=== PATIENT | female | born 1955 | race Caucasian/White ===

== ENCOUNTER 2016-09-05 08:13 | Inpatient (IN) | payer BC ==
[2016-08-07 13:14] VITALS: BMI 24.0
--- NOTE | 2016-08-07 13:54 | PAT Medication Instructions ---
Service Date Aug 07, 2016. Current Home Medication List Alendronate Sodium (Fosamax), 70 MG PO WK Aspirin (Aspirin 81), 81 MG PO 3XWK Cholecalciferol (Vitamin D), 1 TAB PO QPM Levothyroxine Sodium (Synthroid), 88 MCG PO QAM Losartan Potassium (Losartan Potassium), 1 TAB PO QAM Naproxen (Aleve), 1-2 TAB PO QAM Pravastatin (Pravachol ), 10 MG PO HS Medication Instructions For Your Scheduled Surgery Alendronate Sodium (Fosamax), 70 MG PO WK (continue as usual on Sundays) - Hold the following medications 10 days prior to surgery per surgeon instructions: Naproxen (Aleve), 1-2 TAB PO QAM - Hold the following medications the morning of surgery: Losartan Potassium (Losartan Potassium), 1 TAB PO QAM - Take the following medications the morning of surgery with a sip of water: Levothyroxine Sodium (Synthroid), 88 MCG PO QAM Aspirin (Aspirin 81), 81 MG PO 3XWK Tylenol (if needed) - Take the following medications as scheduled the night before surgery: Pravastatin (Pravachol ), 10 MG PO HS Cholecalciferol (Vitamin D), 1 TAB PO QPM Tylenol (if needed) If you have any questions please call us at [phone] or [phone] ( [place]) or [phone]
--- NOTE | 2016-08-07 14:25 | DIAGNOSTIC IMAGING REPORT ---
CHEST 2 VIEWS ROUTINE CLINICAL HISTORY: Preoperative chest COMPARISON STUDY: 06/22/2014 FINDINGS: The cardiac and mediastinal contours are normal. There is no evidence of focal pulmonary consolidation. There is no evidence of failure. No pleural effusions are visualized.[ IMPRESSION: No active disease in the chest. Electronically signed by: Tae Peters M.D. 08/07/2016 2:24 PM Dictated Date/Time: 08/07/2016 2:23 PM
[2016-08-07 14:43] LABS: BASO % 0.6 %; BASO ABS # 0.03 K/uL (0-0.2); COMPLETE YES; EOS % 0.6 %; HEMATOCRIT 41.2 % (37-47); IG% 0.2 %; LYMPH % 28.9 %; LYMPH ABS # 1.42 K/uL (1.2-3.4); MEAN CELL VOLUME 80.6 fL (80-100); MEAN CORPUSCULAR HEMOGLOBIN 28.6 pg (25-34); MEAN CORPUSCULAR HGB CONC 35.4 g/dl (32-36); MEAN PLATELET VOLUME 10.3 fL (7.4-10.4); MONO % 7.5 %; NEUT % 62.2 %; PLATELET COUNT 154 K/uL (130-400); RED BLOOD COUNT 5.11 M/uL (4.2-5.4); WHITE BLOOD COUNT 4.91 K/uL (4.8-10.8)
[2016-08-07 14:50] LABS: PROTHROMBIN TIME (PATIENT) 10.6 SECONDS (9.0-12.0)
[2016-08-07 15:22] LABS: BUN/CREATININE RATIO 19.2 (10-20); CALCIUM 9.3 mg/dl (8.5-10.1); CREATININE 0.75 mg/dl (0.60-1.20); POTASSIUM 4.3 mmol/L (3.5-5.1)
--- NOTE | 2016-09-02 15:51 | HISTORY & PHYSICAL EXAMINATION ---
DATE OF ADMISSION: 09/05/2016 CHIEF COMPLAINT: Left knee pain. HISTORY OF PRESENT ILLNESS: A 60-year-old female who presents for surgical treatment of her left knee. She has a 10+ year history of left knee pain and discomfort. No injuries in the past, just progressive increasing pain. She has been limping around on this. She has been through extensive conservative treatment provided at [facility] with steroid shots and viscosupplementation. The shots only help her for about a day or two and at maximum a week. The pain has become more debilitating. She would like to have her left knee replaced. PAST MEDICAL HISTORY: 1. Hypertension. 2. Elevated cholesterol. 3. Hypothyroidism. 4. Low back pain/sciatica. PAST SURGICAL HISTORY: Previous surgeries include: 1. . 2. Cholecystectomy. ALLERGIES: None. CURRENT MEDICINES: Include: 1. Levothyroxine 100 mcg a day. 2. Losartan 25 mg a day. 3. Pravastatin 10 mg a day. 4. Alendronate 70 mg a week. 5. Vitamin D 1000 international units a day. 6. Aspirin 81 mg 2-3 times a week. 7. Aleve 1-2 per day. SOCIAL HISTORY: This is a 60-year-old white female. She works at [employer]. She is . Two children. FAMILY HISTORY: Significant for heart disease, diabetes and colon cancer. REVIEW OF SYSTEMS: Negative for diabetes, neurologic problems, vascular problems or bleeding disorders. Denies any chest pain or shortness of breath. No history of DVT or PE. PHYSICAL EXAMINATION: GENERAL: Reveals a healthy pleasant, middle-aged female. She looks in pretty good health. HEENT: Benign. NECK: Supple. No lymphadenopathy. LUNGS: Clear to auscultation. HEART: Has a regular rate and rhythm. ABDOMEN: Soft, nontender, nondistended. EXTREMITIES: Grossly neurovascularly intact except as follows: Examination of the left knee reveals the patient walks with a markedly antalgic gait. She has got valgus alignment to her knee which is exacerbated with weightbearing. Her knee is pretty stiff with range of motion about 15 degrees short of full extension to 90 degrees of flexion. No pain with hip motion. X-RAYS: X-rays of the left knee were reviewed. It shows advanced left knee DJD. She has got complete loss of her lateral joint space. She has subchondral sclerosis. Patella was pretty well centered within the trochlea. She has got osteophytes in all 3 compartments. ASSESSMENT: A 60-year-old white female with advanced left knee degenerative joint disease unresponsive to conservative treatment. She would like to have her left knee replaced. She does have some underlying right hip and right knee DJD but the left knee is what is limiting her most. PLAN: We are going to take her to the operating room and do a left total knee replacement. The risks and benefits of this procedure were explained to the patient including but not limited to DVT, PE, , infection, neurological injury, vascular injury, bleeding problem, pain, limited range of motion, stiffness, failure to relieve symptoms, incomplete relief of symptoms, persistent pain, need for further surgery in the future. The patient understands and desires to proceed. Informed consent was obtained. As far as discharge plans, she is planning to be discharged to home with home health using [facility] home health program. We also discussed with her the increased risk of peroneal nerve palsy with her stiff knee and valgus alignment. We will do the best we can to avoid this but we likely will have to do a lateral release to correct the deformity in her knee. As far as medicines, we did talk to her about taking her Synthroid the morning of surgery and holding the Aleve 10 days preop. We will plan DVT prophylaxis including aspirin twice a day.
[2016-09-05] VITALS (7 sets, daily range): BP systolic 103–156; BP diastolic 65–81; PULSE 63–84; TEMP 36.7–37; O2SAT 95–100; Ht 167.6 cm; Wt 69.1 kg
[~2016-09-05] VITALS: Ht 167.6 cm; Wt 69.1 kg
[~2016-09-05 08:13] MED LIST: ACETAMINOPHEN 500 MG TAB PO SCH; ALEN70TA2 PO; ASPI-435 PO; BUPIVACAINE 0.25% 30 ML VIAL ONE; BUPIVACAINE 0.5 % 5 MG/1 ML PF 10ML VIAL ONE; BUPIVACAINE LIPOSOME 266 MG, BUPIVACAINE/EPINEPHRINE INJ 50 ML, SODIUM CHLORIDE 0.9% PF... INFIL SCH; CEFAZOLIN 2000 MG/60 ML D5W 60 ML IV SCH; CHOL100010 PO; CZR25 PO; FAMOTIDINE 20 MG TAB PO SCH; GABAPENTIN 300 MG CAP PO SCH; LACTATED RINGER'S 1000ML 1,000 ML IV SCH; LACTATED RINGER'S 1000ML 500 ML IV SCH; LACTATED RINGER'S 1000ML IV SCH; LEVO88TA PO; METOCLOPRAMIDE HCL 10 MG TAB PO SCH; NAPR1TAB9 PO; PRAV20TA PO; ROPIVACAINE 0.5% 5 MG/ML 30 ML VIAL ONE; SCOPOLAMINE 1.5 MG TDSY TD SCH; TRANEXAMIC ACID INJ 1,000 MG in SODIUM CHLORIDE 0.9% 100ML 100 ML IV SCH
--- NOTE | 2016-09-05 08:38 | History & Physical Bridge Note ---
H&P Re-Evaluation Bridge Note: I have examined the patient, reviewed the History & Physical and in the interval since the performance of the History & Physical I have noted the following changes of clinical significance: No changes noted
[2016-09-05] MEDS ORDERED: MIDAZOLAM HCL 1 MG/ML 2ML VIAL ONE ×2 (10:47→12:16)
[2016-09-05] MEDS ORDERED: HYDROmorphone INJ 2 MG/ML SYR/VIAL IV PRN (11:45)
[2016-09-05] MEDS ORDERED: ONDANSETRON INJ 2 MG/ML 2 ML VIAL IV PRN (11:45)
[2016-09-05] MEDS ORDERED: PHENYLEPHRINE 100MCG/ML 5ML SYR IV PRN (11:45)
[2016-09-05] MEDS ORDERED: ATROPINE SULFATE 0.1 MG/ML 5ML SYR IV PRN (11:45)
[2016-09-05] MEDS ORDERED: EpHEDrine SULFATE INJ 50 MG/ML AMP IV PRN (11:45)
[2016-09-05] MEDS ORDERED: LIDOCAINE HCL 2% 2 ML VIAL (20MG/ML) ONE ×2 (12:02→12:24)
[2016-09-05] MEDS ORDERED: PROPOFOL IV EMULSION 10 MG/ML 20 ML VIAL IV ONE (12:02)
[2016-09-05] MEDS ORDERED: BUPIVACAINE/EPINEPHRINE 0.25% 1:200,000 30 ML VIAL ONE (12:04)
[2016-09-05] MEDS ORDERED: SODIUM CHLORIDE 0.9% PF 50 ML VIAL ONE (12:04)
[2016-09-05] MEDS ORDERED: BUPIVACAINE LIPOSOME 1/3% 266 MG/20 ML VIAL INFIL ONE (12:05)
[2016-09-05] MEDS ORDERED: BACITRACIN 50000 UNIT VIAL ONE (12:05)
--- NOTE | 2016-09-05 13:53 | [facility] Post Operative Brief Note ---
Immediate Operative Summary Operative Date Sep 05, 2016. Pre-Operative Diagnosis Left knee degenerative joint disease Post-Operative Diagnosis Left knee degenerative joint disease Procedure(s) Performed Left total knee arthroplasty Surgeon Dr. Hemant Noble Sales And Service Consultant Surgeon(s) Scott Choudhary PA-C Estimated Blood Loss 50cc Findings Left Knee DJD Fluids (cc crystalloids) 1400 cc Specimens A. Left knee bone and tissue Drains None Anesthesia Spinal Complication(s) None Disposition Recovery Room / PACU
[2016-09-05] MEDS ORDERED: ALUMINUM/MAGNESIUM/SIMETH (MAALOX MAX) 30 ML UDC PO PRN (14:00)
[2016-09-05] MEDS ORDERED: BISACODYL 10 MG SUPP PR PRN (14:00)
[2016-09-05] MEDS ORDERED: DiphenhydrAMINE HCL 50 MG/ML VIAL IV PRN (14:00)
[2016-09-05] MEDS ORDERED: METOCLOPRAMIDE HCL INJ 5 MG/ML 2 ML VIAL IV PRN (14:00)
[2016-09-05] MEDS ORDERED: SILVER SULFADIAZINE 1% CR 50 GM JAR EXT PRN (14:00)
[2016-09-05] MEDS ORDERED: MAGNESIUM HYDROXIDE SUSP 30 ML UDC PO PRN (14:00)
[2016-09-05] MEDS ORDERED: OXYCODONE HCL IR 5 MG TAB (IMMEDIATE RELEASE) PO PRN (14:00)
[2016-09-05] MEDS ORDERED: ZOLPIDEM TARTRATE 5 MG TAB PO PRN (14:00)
--- NOTE | 2016-09-05 14:05 | Anesthesiology Progress Note ---
Anesthesia Post Op Note Date & Time Sep 05, 2016 at 14:04 Vital Signs Pain Intensity: 0 Vital Signs Past 12 Hours Date Time Temp Pulse Resp B/P Pulse Ox O2 Delivery O2 Flow Rate FiO2 09/05/16 08:32 36.9 84 20 156/76 99 Room Air Notes Mental Status: alert / awake / arousable, participated in evaluation Pt Amnestic to Procedure: Yes Nausea / Vomiting: adequately controlled Pain: adequately controlled Airway Patency, RR, SpO2: stable & adequate BP & HR: stable & adequate Hydration State: stable & adequate Anesthetic Complications: no major complications apparent
--- NOTE | 2016-09-05 14:23 | DIAGNOSTIC IMAGING REPORT ---
LEFT KNEE 1 OR 2 VIEWS ROUTINE CLINICAL HISTORY: S/P TKA LEFT KNEE joint replacement COMPARISON: None. DISCUSSION: Anatomic alignment status post total left knee replacement. Good contact between prosthetic and underlying bone. Surgical drains are in position. Expected postoperative soft tissue change IMPRESSION: Anatomic alignment status post total left knee replacement. Electronically signed by: Francesco Manning M.D. 09/05/2016 2:22 PM Dictated Date/Time: 09/05/2016 2:21 PM
[2016-09-05] MEDS: CHECK SCOPOLAMINE PATCH PLACEMENT SCH ×2 (16:34→23:38)
[2016-09-05] MEDS: D5W AND 1/2NSS + 20MEQ KCL 1,000 ML IV SCH (16:35)
[2016-09-05] MEDS: ONDANSETRON INJ 2 MG/ML 2 ML VIAL IV PRN (17:20)
[2016-09-05] MEDS: FERROUS GLUCONATE 324 MG TAB PO SCH (17:45)
[2016-09-05] MEDS: KETOROLAC TROMETHAMINE 30 MG/ML VIAL IV. SCH ×2 (18:41→23:33)
--- NOTE | 2016-09-05 19:35 | PROGRESS NOTE ---
DATE: 09/05/2016 SUBJECTIVE: A 60-year-old white female postop from a left knee replacement. She just got to her room when I visited with her this afternoon. No real complaints. Nerve function is just returning. Denies any chest pain or shortness of breath. Not feeling dizzy or lightheaded. OBJECTIVE: VITAL SIGNS: Temperature is 36.8. Vital signs stable. GENERAL: Reveals a healthy, pleasant middle-aged female. She is sitting up in bed, looks pretty comfortable. LUNGS: Clear to auscultation. HEART: Regular rate and rhythm. ABDOMEN: Soft, nontender, nondistended. EXTREMITIES: Grossly neurovascularly intact except as follows: Examination of the left lower extremity reveals the leg to be well aligned. Dressing is clean, dry and intact. She can dorsiflex and plantarflex her foot appropriately. Peroneal nerve is clearly working. Brisk refill. Good distal pulse. X-RAYS: X-rays of the left knee from recovery room were reviewed. This is bit of a rotated film. It shows a cemented posterior stabilized total knee arthroplasty. Components looked to be in good position. No signs of problems. ASSESSMENT: A 60-year-old white female postop from a left knee replacement, doing pretty well. We did a pretty extensive lateral release. She is neurologically intact. PLAN: 1. DVT prophylaxis including thigh high TEDs, SCDs, and aspirin twice a day. 2. PT/OT. Weightbearing as tolerated. Left total knee protocol. 3. Pain control. Doing well with current pain regimen. 4. IV antibiotics x24 hours. 5. Disposition: She is planning to be discharged to home with some home health once adequately recovered.
--- NOTE | 2016-09-05 19:49 | OPERATIVE REPORT ---
DATE OF OPERATION: 09/05/2016 SURGEON: Dr. Hemant Noble. DRAPERY OPERATOR: BRODIE Spivey. PREOPERATIVE DIAGNOSIS: Left knee degenerative joint disease. POSTOPERATIVE DIAGNOSIS: Same. PROCEDURE PERFORMED: Left cemented posterior stabilized total knee arthroplasty. COMPLICATIONS: None. ESTIMATED BLOOD LOSS: 50 mL. FLUID REPLACEMENT: 1400 mL crystalloid fluid replacement. TOURNIQUET TIME: 66 minutes at 300 mmHg. ANESTHESIA: Spinal with adductor canal block. DRAINS: None. SPECIMENS: Left knee sent for pathology. OPERATIVE INDICATIONS: The patient is a 60-year-old very active female who has had a 10-year history of left knee pain and discomfort, unresponsive to conservative treatment. She has got more and more debilitating over time. She has developed very stiff knee with about 15-degree flexion contracture and a valgus alignment. She had advanced lateral compartment DJD. She failed conservative treatment and elected to proceed with surgical treatment. OPERATIVE FINDINGS: Operative findings revealed advanced left knee DJD. She had grade 4 [id number] disease extensively of lateral compartment as well as the patellofemoral compartment. She had some spotty grade 4 changes in the central aspect of the medial femoral condyle as well. She had a fixed valgus deformity to her knee with a flexion contracture. Very stiff knee with only about 100 degrees of flexion. OPERATIVE IMPLANTS: Operative implants consisted of: 1. Biomet Vanguard size 65 left posterior stabilized femoral component. 2. Biomet size 67 tibial tray. 3. A 12 mm posterior stabilized polyethylene insert. 4. A 31 x 8 all poly patella. OPERATIVE PROCEDURE: The patient was taken to the operating room, identified and placed on the operating table in supine position. All contact areas were appropriately padded. IV antibiotics were provided by the anesthesia team. A spinal anesthetic and adductor canal block had been provided in the holding area. Fox catheter was placed in sterile fashion. A left thigh tourniquet was then placed and left lower extremity was then prepped and draped in the usual sterile fashion. The left leg was elevated and exsanguinated with Esmarch and tourniquet was placed at 300 mmHg. An anterior approach to the left knee was then performed through a longitudinal incision centered over the patella. Sharp dissection was carried out through the subcutaneous tissues, down to the level of the extensor mechanism. A medial parapatellar arthrotomy incision was made. Some subperiosteal dissection was carried out medially. The fat pad was resected from beneath the patellar tendon. The lateral patellofemoral ligament was released. The patella was everted and the knee was flexed. The osteophytes were taken off the distal femur. The ACL and PCL were then released from the distal femur and the tibia was subluxated anteriorly. The external tibial alignment jig was then placed in the anterior face of the tibia and adjusted 12 mm medially. Proximal tibial cut was made to remove about 2-3 mm of bone from the medial side. The tibia was then sized to a size 67. Attention was then drawn to the femur. The distal femur was entered with a sharp drill bit. Intramedullary canal was suctioned. A left 5-degree valgus cutting guide was placed. Distal femoral cutting block was pinned in place. Distal femoral cut was made to take an additional 5 mm of bone off the distal femur due to her flexion contracture. The knee was brought out into full extension. I then did a pretty extensive release of the lateral structures including the IT band and the posterolateral capsule in order to equalize the extension gap. Once this was equalized, I then sized the femur. The femur was sized to a size 65. The AP cutting block was pinned parallel to the epicondylar axis, which was 70 degrees of external rotation. The anterior cut, anterior chamfer, posterior cut, posterior chamfer cuts were made. Box cutting guide was placed and adjusted slightly lateral and the box cut was made. The knee was flexed. The remnants of the medial and lateral menisci were excised. I did have to release the popliteus in order to equalize the flexion gap. Great care was taken throughout the procedure to protect the peroneal nerve at all times. A trial femoral component was placed. Tibial tray was pinned in maximum external rotation and drill and stem punch were used to create defect in proximal tibia for the tibial tray. The knee was then trialed and even with a 10 mm insert, it was still tight. Therefore, I elected to cut more tibia. All components were removed. The external tibial alignment jig was placed. I took an additional 4-5 mm off the proximal tibia. We re-punched the tibia with a 67 tray. We then trialed the knee and the 12 mm insert fit most appropriately. We got full extension, slight hyperextension. The knee was stable. The patella tracked well. Attention was then drawn toward the patella component. The patella was cleaned of all soft tissues. Patella thickness measured about 22 mm, was cut down to 14. It was sized to a size 31 patella. Lug holes were drilled for the 31 patella. The lateral osteophyte was removed. Patella button was placed. Knee was taken through range of motion and the patella tracked nicely with no thumbs test. Attention was then drawn toward placement of permanent components. All trial components were removed. Bone plug was placed in the distal femur to limit blood loss. A double batch of Palacos G cement was mixed. A left size 65 posterior stabilized femoral component, size 67 tibial tray, 12 mm posterior stabilized polyethylene insert, and a 31 x 8 all poly patella were then cemented in place. Knee was brought out into full extension until cement hardened. A final cement check was then performed. The pericapsular tissues were then injected with a total of 100 mL of a combination of 20 mL of Exparel, 30 mL of normal saline, 50 mL of 0.25% Marcaine with epinephrine. The patient did receive 1 gram of tranexamic acid. The tourniquet was then let down for a final tourniquet time of 66 minutes. Hemostasis was assured with use of electrocautery. The extensor mechanism was then closed with a combination of #1 PDS suture and #1 Vicryl suture in a [id number] fashion. Extensor mechanism was checked and found to be intact. Subcutaneous tissues were then closed with 2-0 Dexon suture in a buried interrupted fashion. Skin was closed with skin damaris. Leg was then cleaned and dried and a sterile dressing composed of Xeroform, 4 x 4, sterile cast padding and David bandage were applied. The patient then transferred to the recovery room in stable condition. The patient tolerated the procedure well with no complication. All needle and sponge counts were correct at the end of the operation. I attest to the content of the Intraoperative Record and any orders documented therein. Any exceptio ns are noted below.
[2016-09-05] MEDS ORDERED: TRANEXAMIC ACID INJ 1,000 MG in SODIUM CHLORIDE 0.9% 100ML 100 ML IV SCH (20:00)
[2016-09-05] MEDS: CEFAZOLIN IV 1,000 MG in DEXTROSE 5% 50ML 50 ML IV SCH (20:40)
[2016-09-05] MEDS: TAPENTADOL ER 50 MG TABCR PO SCH (21:00)
[2016-09-05] MEDS: CHOLECALCIFEROL 400 INTER.UNIT TAB PO SCH (21:00)
[2016-09-05] MEDS: PRAVASTATIN SOD 20 MG TAB PO SCH (21:00)
[2016-09-05] MEDS: ASPIRIN 325 MG ECTAB PO SCH (21:00)
[2016-09-05] MEDS: DOCUSATE SODIUM 100 MG CAP PO SCH (21:00)
[2016-09-05] MEDS: ACETAMINOPHEN 500 MG TAB PO SCH (21:45)
[2016-09-06] MEDS: D5W AND 1/2NSS + 20MEQ KCL 1,000 ML IV SCH ×2 (03:12→12:00)
[2016-09-06] MEDS: MoRPHine SULFATE 2 MG/ML CARP IV PRN ×2 (03:17→10:37)
[2016-09-06 03:18] VITALS: BP 99/62; PULSE 71; TEMP 36.8; O2SAT 96
[2016-09-06] MEDS: CEFAZOLIN IV 1,000 MG in DEXTROSE 5% 50ML 50 ML IV SCH (03:20)
[2016-09-06] MEDS: ONDANSETRON INJ 2 MG/ML 2 ML VIAL IV PRN (06:13)
[2016-09-06] MEDS: KETOROLAC TROMETHAMINE 30 MG/ML VIAL IV. SCH ×4 (06:14→23:33)
[2016-09-06] MEDS: LEVOTHYROXINE 88 MCG TAB PO SCH (06:14)
[2016-09-06] MEDS: ACETAMINOPHEN 500 MG TAB PO SCH ×3 (06:15→21:25)
[2016-09-06 06:58] LABS: HEMATOCRIT 32.5 % (37-47); MEAN CELL VOLUME 82.9 fL (80-100); MEAN CORPUSCULAR HEMOGLOBIN 28.3 pg (25-34); MEAN CORPUSCULAR HGB CONC 34.2 g/dl (32-36); MEAN PLATELET VOLUME 9.2 fL (7.4-10.4); PLATELET COUNT 124 K/uL (130-400); RED BLOOD COUNT 3.92 M/uL (4.2-5.4); WHITE BLOOD COUNT 5.95 K/uL (4.8-10.8)
[2016-09-06] MEDS: CHECK SCOPOLAMINE PATCH PLACEMENT SCH ×3 (07:21→23:34)
[2016-09-06 07:31] LABS: BUN/CREATININE RATIO 9.9 (10-20); CALCIUM 7.8 mg/dl (8.5-10.1); CREATININE 0.74 mg/dl (0.60-1.20); POTASSIUM 3.7 mmol/L (3.5-5.1)
[2016-09-06 08:14] VITALS: BP 122/70; PULSE 64; TEMP 36.8; O2SAT 98
[2016-09-06 08:45] VITALS: BP 109/69; PULSE 67
[2016-09-06] MEDS: MULTIVITAMIN TAB PO SCH (08:46)
[2016-09-06] MEDS: FERROUS GLUCONATE 324 MG TAB PO SCH ×3 (08:46→17:43)
[2016-09-06] MEDS: DOCUSATE SODIUM 100 MG CAP PO SCH ×2 (08:46→20:27)
[2016-09-06] MEDS: TAPENTADOL ER 50 MG TABCR PO SCH ×2 (08:46→20:27)
[2016-09-06] MEDS: LOSARTAN POTASSIUM 25 MG TAB PO SCH (08:46)
[2016-09-06] MEDS: ASPIRIN 325 MG ECTAB PO SCH ×2 (08:47→20:27)
[2016-09-06] MEDS: PANTOprazole SOD 40 MG TAB PO SCH (08:47)
[2016-09-06 08:54] VITALS: O2SAT 98
[2016-09-06 11:34] VITALS: BP 100/60; PULSE 70; TEMP 36.5; O2SAT 96
--- NOTE | 2016-09-06 12:00 | PROGRESS NOTE ---
DATE: 09/06/2016 SUBJECTIVE: A 60-year-old female, postop day #1 from a left knee replacement. She is doing well. Pain is controlled. Had a reasonable night. No chest pain or shortness of breath. Not feeling dizzy or lightheaded. OBJECTIVE: VITAL SIGNS: Temperature is 36.5. Vital signs stable. PHYSICAL EXAMINATION: GENERAL: Reveals a healthy, pleasant middle-aged female. She is sitting up in bed and was reading a book when I visited her this morning. LUNGS: Clear to auscultation. HEART: Regular rate and rhythm. ABDOMEN: Soft, nontender, nondistended. EXTREMITIES: Grossly neurovascularly intact except as follows: Examination of the left lower extremity reveals the leg to be well aligned. Dressing is clean, dry and intact. She can dorsiflex and plantarflex her foot appropriately. She is neurologically intact. LABORATORY DATA: Hemoglobin 11.1, hematocrit 32.5. Electrolytes are stable. ASSESSMENT: A 60-year-old white female, postop day #1 from left knee replacement, doing pretty well. Her pain is controlled. She is neurologically intact. PLAN: 1. DVT prophylaxis including thigh TEDs, SCDs, and aspirin twice a day. 2. PT/OT. Weightbearing as tolerated. Left total knee protocol. 3. Pain control, doing well with current pain regimen. 4. Disposition: She is hoping to be discharged to home with some home health once adequately recovered.
--- NOTE | 2016-09-06 13:00 | Anesthesiology Progress Note ---
Anesthesia Post Op Note Date & Time Sep 06, 2016 at 12:59 Vital Signs Vital Signs Past 12 Hours Date Time Temp Pulse Resp B/P Pulse Ox O2 Delivery O2 Flow Rate FiO2 09/06/16 11:34 36.5 70 16 100/60 96 Room Air 09/06/16 08:54 98 Room Air 09/06/16 08:45 67 109/69 09/06/16 08:14 36.8 64 16 122/70 98 Room Air 09/06/16 06:30 Room Air 09/06/16 03:18 36.8 71 16 99/62 96 Room Air Notes Mental Status: alert / awake / arousable, participated in evaluation Pt Amnestic to Procedure: Yes Nausea / Vomiting: adequately controlled Pain: adequately controlled Airway Patency, RR, SpO2: stable & adequate BP & HR: stable & adequate Hydration State: stable & adequate Neuraxial Anesthesia: was administered, sensory block resolved Anesthetic Complications: no major complications apparent
[2016-09-06 15:01] VITALS: BP 123/64; PULSE 78; TEMP 36.7; O2SAT 98
[2016-09-06] MEDS ORDERED: NURSING VERBAL MED ORDER ONE (16:00)
[2016-09-06] MEDS: TRAMADOL HCL 50 MG TAB PO PRN ×2 (17:09→23:32)
[2016-09-06] MEDS: PRAVASTATIN SOD 20 MG TAB PO SCH (21:24)
[2016-09-06] MEDS: CHOLECALCIFEROL 400 INTER.UNIT TAB PO SCH (21:24)
[2016-09-06] MEDS ORDERED: ULT50X PO (21:43)
[2016-09-06] MEDS ORDERED: ASPEC325 PO (21:43)
[2016-09-06] MEDS ORDERED: MORP15TA19 PO (21:43)
[2016-09-06] MEDS ORDERED: ACET-1138 PO (21:43)
--- NOTE | 2016-09-06 21:47 | Discharge Instructions ---
Discharge Instructions Date of Service Sep 06, 2016. Admission Reason for Admission: Left Knee Degenerative Joint Disease Discharge Discharge Diagnosis / Problem: Left Knee Replacement Discharge Goals Goal(s): Decrease discomfort, Improve function, Increase independence, Improve disease control, Therapeutic intervention Activity Recommendations Activity Limitations: per Instructions/Follow-up section Weightbearing Status: Left weightbearing . Instructions / Follow-Up Instructions / Follow-Up ACTIVITY RECOMMENDATIONS: Physical Therapy: * You will go to physical therapy three times each week for four to six weeks after your surgery in order to regain your knee range of motion and to retrain your knee to work properly. * It is just as important to make sure you are getting your knee perfectly straight as it is to regain your knee bend. * Taking a pain pill an hour before therapy can help you have a more productive and comfortable therapy session. Home Exercise: * You were shown a series of exercises (heel props, heel slides, etc.) in the hospital. Do these exercises three to four times each day including the exercises you were shown in physical therapy. Walking: * Get up and walk several times each day. For the first four weeks, try not to stand or walk for more than one hour at a time. If you do stand or walk for more than one hour, you will not hurt anything, but your knee and leg will likely swell. * As you feel comfortable, you may change from the walker or crutches to a cane and then to independent walking. MEDICATIONS: New Medicine: * You will likely be taking one or more of these medications: 1. MS Contin - A long-acting pain medication. Take 1 tablet twice a day for the first ten days to decrease your baseline level of pain. 2. Tramadol - A quick and shorter-acting pain medication. Take one to two tablets every four to six hours to lessen your pain. 3. Aspirin - Thins your blood to lessen the chance of forming a blood clot. * The most common side effects of pain medicine and iron are nausea and constipation. If nausea or constipation is too much of a problem or if you have any questions about your new medicines or doses, call [facility] at . We will try to help you manage these issues. VERY IMPORTANT TO READ AND REVIEW" Pain: * The immediate post-operative period after knee replacement surgery is often quite painful. * You are given a prescription for pain medicine. You should take it, as directed, when you need it, especially before physical therapy and before going to bed. Pain that interferes with sleep is very common and can last several months. * You will likely need pain medicine for the first four to six weeks. It will not stop all of the pain. The pain will lessen and as you feel better, you may change to milder pain medicine such as Tylenol. * The most common side effects of pain medicine are nausea and constipation, so don't take more than you need. SPECIAL CARE INSTRUCTIONS: TEDs/Elastic Stockings: * The white elastic stockings help limit swelling and prevent blood clots from forming in your legs. The more you wear them, the more they work. * Wear them for six weeks after knee replacement surgery and four weeks after partial knee replacement. Prevention of Infection: * Take antibiotics one hour before any dental cleaning, dental work, urological procedure, gastrointestinal procedure or any invasive surgery in order to prevent your new joint from getting infected. * You may get the antibiotics from the doctor performing the procedure or you may call our office at before and we will call in a prescription to the pharmacy of your choice. Things to Watch For: * Drainage from the incision site that occurs more than one week after your surgery. * Severely increased knee/leg pain or swelling. * Increased redness at the incision site. * Fever above 102 degrees Fahrenheit. * Unusual chest pain or shortness of breath. * Unusual pain or burning with urination. Call [facility] at with any of the above problems or if you have any questions about your medicines or recovery. FOLLOW UP VISIT: Make an appointment to see your doctor for approximately two weeks after surgery for a progress check and staple removal by calling the office at . Current Hospital Diet Patient's current hospital diet: Regular Diet Discharge Diet Recommended Diet: Regular Diet Procedures Procedures Performed: Left total knee arthroplasty Pending Studies Studies pending at discharge: no Medical Emergencies . Who to Call and When: Medical Emergencies: If at any time you feel your situation is an emergency, please call [phone] immediately. . Non-Emergent Contact Non-Emergency issues call your: Surgeon . "Provider Documentation" section prepared by Hemant Noble. VTE Core Measure Inpt VTE Proph given/why not?: Other Anticoagulation, T.E.D. Stockings, SCD's
[2016-09-07] MEDS: LEVOTHYROXINE 88 MCG TAB PO SCH (05:37)
[2016-09-07] MEDS: ACETAMINOPHEN 500 MG TAB PO SCH (05:37)
[2016-09-07] MEDS: KETOROLAC TROMETHAMINE 30 MG/ML VIAL IV. SCH ×2 (05:40→12:00)
[2016-09-07 06:38] VITALS: BP 109/68; PULSE 71; TEMP 36.8; O2SAT 97
[2016-09-07] MEDS ORDERED: PROM25TA9 PO (07:02)
--- NOTE | 2016-09-07 07:27 | ORTHOPEDIC PROGRESS NOTE ---
DATE: 09/07/2016 SUBJECTIVE: Aissatou is a 60-year-old female. She is on postop day #2 from left total knee replacement. Pain is controlled. No other complaints at this time. PHYSICAL EXAM: GENERAL: She is alert, oriented in no distress. LEFT LOWER EXTREMITY: Dressing is clean, dry and intact. She is able to dorsiflex, plantarflex appropriately, neurovascularly intact. VITAL SIGNS: Her vital signs have been stable. ASSESSMENT: Postoperative day 2 from left total knee replacement. PLAN: She is doing well at this point, will continue PT, OT. Weightbearing as tolerated. Continue TEDS, SCDs and aspirin b.i.d. for DVT prophylaxis. Her pain is controlled and she is taking tramadol for pain. Will plan to discharge her home today with some home health. She is requesting some Phenergan for nausea so we will write her for Phenergan as well.
[2016-09-07] MEDS: CHECK SCOPOLAMINE PATCH PLACEMENT SCH (08:09)
[2016-09-07] MEDS: FERROUS GLUCONATE 324 MG TAB PO SCH ×2 (08:11→12:30)
[2016-09-07] MEDS: LOSARTAN POTASSIUM 25 MG TAB PO SCH (08:14)
[2016-09-07] MEDS: MULTIVITAMIN TAB PO SCH (08:16)
[2016-09-07] MEDS: TAPENTADOL ER 50 MG TABCR PO SCH (08:16)
[2016-09-07] MEDS: PANTOprazole SOD 40 MG TAB PO SCH (08:16)
[2016-09-07] MEDS: ASPIRIN 325 MG ECTAB PO SCH (08:26)
[2016-09-07] MEDS: DOCUSATE SODIUM 100 MG CAP PO SCH (08:26)
[2016-09-07 08:46] VITALS: BP 95/68
[2016-09-07] MEDS: TRAMADOL HCL 50 MG TAB PO PRN (10:33)
[2016-09-07 11:02] VITALS: BP 95/68; PULSE 71; TEMP 36.8; O2SAT 97
--- NOTE | 2016-09-14 01:55 | DISCHARGE SUMMARY ---
ADMITTING PHYSICIAN AND SURGEON: Dr. Noble. ADMITTING DIAGNOSIS: Left knee degenerative joint disease. SURGERY PERFORMED: Left total knee arthroplasty. SECONDARY DIAGNOSES: Hypertension, elevated cholesterol, hypothyroidism, low back pain, sciatica. CONSULTS: None obtained. HISTORY AND PHYSICAL EXAMINATION: Well documented in the patient's chart. HOSPITAL COURSE: The patient was admitted on 09/05/2016, underwent total knee arthroplasty, tolerated the procedure well. There were no complications. She was transferred to the PACU postoperatively and later to the orthopedic floor for further care. She was given Ancef for antibiotic prophylaxis; [place] stockings, SCDs and aspirin for DVT prophylaxis. Hemoglobin, hematocrit and vital signs were monitored during her hospital stay and remained stable. She developed some postoperative anemia with hemoglobin of 11.1 and did not require any blood transfusions. There were no complications. By postoperative day 2, she was tolerating a general diet, pain was controlled with oral pain medicine, and she was participating in physical therapy and had no signs or symptoms of deep vein thrombosis. On postop day 2, she was discharged home in good condition, set up with home health services, and given printed discharge instructions including extra strength Tylenol, aspirin 325 mg b.i.d., MS Contin, tramadol. She was also given Phenergan for nausea. She can continue her home medications with the exception of her home dose of aspirin which was changed. Continue physical therapy, weightbearing as tolerated, [place] stockings. Follow up in 10-12 days or sooner if there are any problems or concerns.
== END 2016-09-07 13:26 | disposition home health service (06) | DRG 470 ==
LOC: ENRESERVTM → ENRESERVDT → C.ACU 08:13 → C.3E 08:59
PROVIDERS: ADMIT Orthopaedic Surgery Sports Medicine; ATTEND Orthopaedic Surgery Sports Medicine
PROC: 0SRD0J9 Replacement of Left Knee Joint with Synthetic Substitute, Cemented, Open Approach (ICD-10-PCS; principal; 2016-09-05 10:40)
DX: M17.0 Bilateral primary osteoarthritis of knee (principal); E03.9 Hypothyroidism, unspecified; E78.00 Pure hypercholesterolemia, unspecified; I10 Essential (primary) hypertension; M54.5 Low back pain; M54.10 Radiculopathy, site unspecified; M16.11 Unilateral primary osteoarthritis, right hip; M21.062 Valgus deformity, not elsewhere classified, left knee; Z79.82 Long term (current) use of aspirin; Z79.1 Long term (current) use of non-steroidal anti-inflammatories (NSAID); Z79.899 Other long term (current) drug therapy; Z79.83 Long term (current) use of bisphosphonates

== ENCOUNTER → 2016-10-04 | Outpatient (CLI) | payer BC ==
[~2016-10-04] MED LIST changes: +ACET-1138 PO; -ACETAMINOPHEN 500 MG TAB PO SCH; +ASPEC325 PO; -ASPI-435 PO; -BUPIVACAINE 0.25% 30 ML VIAL ONE; -BUPIVACAINE 0.5 % 5 MG/1 ML PF 10ML VIAL ONE; -BUPIVACAINE LIPOSOME 266 MG, BUPIVACAINE/EPINEPHRINE INJ 50 ML, SODIUM CHLORIDE 0.9% PF... INFIL SCH; -CEFAZOLIN 2000 MG/60 ML D5W 60 ML IV SCH; -FAMOTIDINE 20 MG TAB PO SCH; -GABAPENTIN 300 MG CAP PO SCH; -LACTATED RINGER'S 1000ML 1,000 ML IV SCH; -LACTATED RINGER'S 1000ML 500 ML IV SCH; -LACTATED RINGER'S 1000ML IV SCH; -METOCLOPRAMIDE HCL 10 MG TAB PO SCH; +PROM25TA9 PO; -ROPIVACAINE 0.5% 5 MG/ML 30 ML VIAL ONE; -SCOPOLAMINE 1.5 MG TDSY TD SCH; -TRANEXAMIC ACID INJ 1,000 MG in SODIUM CHLORIDE 0.9% 100ML 100 ML IV SCH; +ULT50X PO
--- NOTE | 2016-10-04 17:09 | MAMMOGRAPHY REPORT ---
BILATERAL DIGITAL SCREENING MAMMOGRAM TOMOSYNTHESIS WITH CAD: 10/04/2016 CLINICAL HISTORY: Routine screening. Patient has no complaints. TECHNIQUE: Breast tomosynthesis in addition to standard 2D mammography was performed. Current study was also evaluated with a Computer Aided Detection (CAD) system. COMPARISON: Comparison is made to exams dated: 09/28/2015 mammogram, 09/23/2014 mammogram, 09/16/2013 m ammogram, 09/03/2012 mammogram, 08/29/2011 mammogram, and 08/11/2009 mammogram - [facility] enter. BREAST COMPOSITION: There are scattered areas of fibroglandular density in both breasts. FINDINGS: There are stable punctate benign-appearing microcalcifications in the anterior aspect of the breasts. No suspicious mass, architectural distortion or cluster of suspicious microcalcificatio ns is seen. IMPRESSION: ACR BI-RADS CATEGORY 2: BENIGN There is no mammographic evidence of malignancy. A 1 year screening mammogram is recommended. The p atient will receive written notification of the results. Approximately 10% of breast cancers are not detected with mammography. A negative mammographic repor t should not delay biopsy if a clinically suggestive mass is present. Loida Heck M.D. ay/:10/04/2016 16:46:25 Logistics Supervisor: Cookie John, [facility] letter sent: Normal 1/2 BI-RADS Code: ACR BI-RADS Category 2: Benign
== END | disposition home or self-care (01) ==
LOC: C.MAMM 14:30
PROVIDERS: ATTEND Obstetrics & Gynecology
DX: Z12.31 Encounter for screening mammogram for malignant neoplasm of breast (principal)

== ENCOUNTER 2017-08-01 19:26 | Observation (INO) | payer OTHER ==
[~2017-08-01] VITALS: Ht 167.6 cm; Wt 71.1 kg
[~2017-08-01 19:26] MED LIST changes: -ACET-1256 PO; -ASPI81TA28 PO; -LEVO100T7 PO; -OPTIRAY 320 IV PRN; -OXYC-57 PO; -PRAV10TA39 PO
[2017-08-01 20:32] LABS: BASO % 0.2 %; BASO ABS # 0.01 K/uL (0-0.2); EOS % 0.5 %; EOS ABS # 0.03 K/uL (0-0.5); HEMATOCRIT 41.6 % (37-47); IG# 0.01 K/uL (0.00-0.02); LYMPH % 20.7 %; LYMPH ABS # 1.27 K/uL (1.2-3.4); MEAN CELL VOLUME 81.4 fL (80-100); MEAN CORPUSCULAR HEMOGLOBIN 29.4 pg (25-34); MEAN CORPUSCULAR HGB CONC 36.1 g/dl (32-36); MEAN PLATELET VOLUME 9.7 fL (7.4-10.4); MONO % 6.5 %; NEUT % 71.9 %; NEUT ABS # 4.42 K/uL (1.4-6.5); PLATELET COUNT 168 K/uL (130-400); RED CELL DISTRIBUTION WIDTH CV 13.6 % (11.5-14.5); RED CELL DISTRIBUTION WIDTH SD 40.1 fL (36.4-46.3); WHITE BLOOD COUNT 6.14 K/uL (4.8-10.8)
[2017-08-01 20:46] LABS: ALBUMIN 4.4 gm/dl (3.4-5.0); CALCIUM 9.4 mg/dl (8.5-10.1); CREATININE 0.84 mg/dl (0.60-1.20); POTASSIUM 3.4 mmol/L (3.5-5.1)
[2017-08-01 20:49] LABS: TOTAL PROTEIN 8.2 gm/dl (6.4-8.2)
[2017-08-01] MEDS ORDERED: ACET-1256 PO (21:30)
[2017-08-01] MEDS ORDERED: ASPI81TA28 PO (21:30)
[2017-08-01] MEDS ORDERED: LEVO100T7 PO (21:30)
[2017-08-01] MEDS ORDERED: PRAV10TA39 PO (21:31)
[2017-08-01 21:56] VITALS: O2SAT 98
[2017-08-01] MEDS ORDERED: BUPIVACAINE 0.5 % 5 MG/1 ML MPF 30ML VIAL ONE (21:56)
[2017-08-01] MEDS ORDERED: MIDAZOLAM HCL 1 MG/ML 2ML VIAL ONE (22:00)
[2017-08-01] MEDS ORDERED: FENTANYL CITRATE INJ 50 MCG/1 ML 2 ML VIAL ONE (22:01)
[2017-08-01] MEDS ORDERED: PHENYLEPHRINE HCL INJ 10 MG/ML VIAL ONE (22:02)
[2017-08-01] MEDS ORDERED: PROPOFOL IV EMULSION 10 MG/ML 20 ML VIAL IV ONE (22:02)
[2017-08-01] MEDS ORDERED: EpHEDrine SULFATE INJ 50 MG/ML AMP ONE (22:02)
[2017-08-01] MEDS ORDERED: LIDOCAINE HCL 2% 2 ML VIAL (20MG/ML) ONE ×2 (22:02)
--- NOTE | 2017-08-01 22:03 | History and Physical ---
History & Physical Date Aug 01, 2017. Chief Complaint RLQ abdominal pain History of Present Illness The patient is a 61 year old female with complaints of periumbilical pain eventually localizing to the RLQ which started around Midnight this past night. States the pain was sharp and stabbing but calmed down a bit. She continued to have RLQ tenderness so she went to see her physician Dr. Pan who sent her to [facility] for an U/S. The U/S was indeterminant so she was sent to the hospital to have a CT with showed findings significant for acute appendicitis. She was then sent to the ED. Denies fever/chills/recent illness. Denies nausea/ vomiting. States she did have some diarrhea due to the CT prep but denies any irregularities with BM. She has been urinating without trouble. She last ate at 0830 this AM. PSHx significant for laparoscopic cholecystectomy, and Left TKA. She does take Aspirin 81mg PO QD. Her last dose was last night around 2100. Denies use of any other blood thinning or anticoagulant medications. She does have an allergy to chlorhexidine. WBC WNL. Last colonoscopy in 2014 which she reports was normal without any polyps. Past Medical/Surgical History Medical Problems: (1) Left Knee DJD Additional History Hepatic Disease: No Endocrine Disorder: No Kidney Disease: No Hypertension: No Heart Disease: No Bleeding Tendencies: No Infectious Diseases: No Allergies Coded Allergies: Chlorhexidine (Verified Allergy, Mild, RASH, 08/01/17) Home Medications Scheduled Alendronate Sodium (Fosamax), 70 MG PO WK Aspirin (Aspirin Ec), 81 MG PO HS Cholecalciferol (Vitamin D), 1,000 INTER.UNIT PO QPM Levothyroxine Sodium (Levothyroxine Sodium), 100 MCG PO QAM Losartan Potassium (Losartan Potassium), 25 MG PO QAM Pravastatin Sodium (Pravastatin Sodium), 10 MG PO HS Scheduled PRN Acetaminophen (Tylenol), 1,000 MG PO Q8 PRN for Pain or Fever Naproxen (Aleve), 220-440 MG PO UD PRN for Pain Physical Examination Skin: warm/dry Eyes: normal inspection Head: normocephalic, atraumatic Neck: trachea midline Respiratory/Chest: lungs clear, normal breath sounds, no respiratory distress Cardiovascular: regular rate, rhythm, no murmur Abdomen / GI: normal bowel sounds, + pertinent finding (RLQ TTP) Neurologic/Psych: alert, oriented x 3 Diagnosis Acute Appendicitis ASA Classification: ASA Class II Plan of Treatment Acute Appendicitis Plan for laparoscopic appendectomy, possible open with Dr. Ward in OR tonight. Risks, benefits, alternatives to the procedure were discussed - all questions answered. NPO, 2g IV Mefoxin, SCDs. OR Notified. Please contact with questions or concerns.
--- NOTE | 2017-08-01 22:03 | EMERGENCY ROOM VISIT NOTE ---
History First contact with patient: 20:04 Chief Complaint: ABNORMAL DIAGNOSTIC TESTING Stated Complaint: ACUTE APPENDICITIS History of Present Illness The patient is a 61 year old female who presents to the Emergency Room with complaints of abdominal pain. The patient reports that last night around midnight, she developed periumbilical pain. She states that the pain then moved to her right lower abdomen. The pain was initially intense, but then improved slightly. She states that throughout the day, her pain has been better but she has had pain with pushing on the area or walking. She was seen by her primary care provider and had an ultrasound ordered which was inconclusive. She then had a CT scan which showed findings consistent with acute appendicitis. Patient denies any fevers, urinary symptoms, changes in bowel movements, nausea or vomiting. She has had previous cholecystectomy, C- section and left knee replacement. She has history of hypertension and hypothyroidism. Review of Systems A complete 10 point review of systems was reviewed with the patient with pertinent positives and negatives as per history of present illness. All else were negative. Past Medical/Surgical History Medical Problems: (1) Hyperlipidemia (2) Hypertension (3) Hypothyroidism (4) Left Knee DJD Surgical Problems: (1) History of section (2) History of cholecystectomy (3) Status post left knee replacement Social History Smoking Status: Never Smoker Marital Status: Housing Status: lives with family Occupation Status: employed Current/Historical Medications Scheduled Alendronate Sodium (Fosamax), 70 MG PO WK Aspirin (Aspirin Ec), 81 MG PO HS Cholecalciferol (Vitamin D), 1,000 INTER.UNIT PO QPM Levothyroxine Sodium (Levothyroxine Sodium), 100 MCG PO QAM Losartan Potassium (Losartan Potassium), 25 MG PO QAM Pravastatin Sodium (Pravastatin Sodium), 10 MG PO HS Scheduled PRN Acetaminophen (Tylenol), 1,000 MG PO Q8 PRN for Pain or Fever Naproxen (Aleve), 220-440 MG PO UD PRN for Pain Physical Exam Vital Signs Date Time Temp Pulse Resp B/P (MAP) Pulse Ox O2 Delivery O2 Flow Rate FiO2 08/01/17 21:56 84 16 158/75 98 08/01/17 21:04 81 16 133/72 97 Room Air 08/01/17 19:34 36.6 98 20 139/73 98 Room Air Physical Exam VITALS: Vitals are noted on the nurse's note and reviewed by myself. Vital signs stable. GENERAL: This is a 61-year-old female, in no acute distress, nondiaphoretic, well-developed well-nourished. MOUTH: Mucous membranes moist. HEART: Regular rate and rhythm without murmurs gallops or rubs. LUNGS: Clear to auscultation bilaterally without wheezes, rales or rhonchi. ABDOMEN: Positive bowel sounds x 4. Soft, nondistended. There is tenderness to palpation in the right lower quadrant over McBurney's point. No guarding or rebound tenderness. Negative Rovsing sign. NEURO: Patient was alert and oriented to person place and time. Medical Decision & Procedures Laboratory Results 08/01/17 20:15 Red Blood Count 5.11, Mean Corpuscular Volume 81.4, Mean Corpuscular Hemoglobin 29.4, Mean Corpuscular Hemoglobin Concent 36.1, Mean Platelet Volume 9.7, Neutrophils (%) (Auto) 71.9, Lymphocytes (%) (Auto) 20.7, Monocytes (%) (Auto) 6.5, Eosinophils (%) (Auto) 0.5, Basophils (%) (Auto) 0.2, Neutrophils # (Auto) 4.42, Lymphocytes # (Auto) 1.27, Monocytes # (Auto) 0.40, Eosinophils # (Auto) 0.03, Basophils # (Auto) 0.01 08/01/17 20:15 Test 08/01/17 20:15 White Blood Count 6.14 K/uL (4.8-10.8) Red Blood Count 5.11 M/uL (4.2-5.4) Hemoglobin 15.0 g/dL (12.0-16.0) Hematocrit 41.6 % (37-47) Mean Corpuscular Volume 81.4 fL (80-100) Mean Corpuscular Hemoglobin 29.4 pg (25-34) Mean Corpuscular Hemoglobin Concent 36.1 g/dl (32-36) Platelet Count 168 K/uL (130-400) Mean Platelet Volume 9.7 fL (7.4-10.4) Neutrophils (%) (Auto) 71.9 % Lymphocytes (%) (Auto) 20.7 % Monocytes (%) (Auto) 6.5 % Eosinophils (%) (Auto) 0.5 % Basophils (%) (Auto) 0.2 % Neutrophils # (Auto) 4.42 K/uL (1.4-6.5) Lymphocytes # (Auto) 1.27 K/uL (1.2-3.4) Monocytes # (Auto) 0.40 K/uL (0.11-0.59) Eosinophils # (Auto) 0.03 K/uL (0-0.5) Basophils # (Auto) 0.01 K/uL (0-0.2) RDW Standard Deviation 40.1 fL (36.4-46.3) RDW Coefficient of Variation 13.6 % (11.5-14.5) Immature Granulocyte % (Auto) 0.2 % Immature Granulocyte # (Auto) 0.01 K/uL (0.00-0.02) Urine Color YELLOW Urine Appearance CLEAR (CLEAR) Urine pH 5.0 (4.5-7.5) Urine Specific [place] <= 1.005 (1.000-1.030) Urine Protein NEG (NEG) Urine Glucose (UA) NEG (NEG) Urine Ketones TRACE (NEG) Urine Occult Blood 2+ (NEG) Urine Nitrite NEG (NEG) Urine Bilirubin NEG (NEG) Urine Urobilinogen NEG (NEG) Urine Leukocyte Esterase NEG (NEG) Urine RBC 5-10 /hpf (0-4) Urine WBC 0 /hpf (0-5) Urine Epithelial Cells 0-5 /lpf (0-5) Urine Bacteria NEG (NEG) Anion Gap 6.0 mmol/L (3-11) Est Creatinine Clear Calc Drug Dose 71.2 ml/min Estimated GFR () 87.6 Estimated GFR (Non- 75.5 BUN/Creatinine Ratio 12.0 (10-20) Calcium Level 9.4 mg/dl (8.5-10.1) Total Bilirubin 2.2 mg/dl (0.2-1) Aspartate Amino Transf (AST/SGOT) 17 U/L (15-37) Alanine Aminotransferase (ALT/SGPT) 20 U/L (12-78) Alkaline Phosphatase 73 U/L (45-117) Total Protein 8.2 gm/dl (6.4-8.2) Albumin 4.4 gm/dl (3.4-5.0) Globulin 3.8 gm/dl (2.5-4.0) Albumin/Globulin Ratio 1.2 (0.9-2) ECG Per My Interpretation Rate (beats per minute): 82 Rhythm: normal sinus Findings: PVC, T-wave inversion (Inferior) Comparison ECG Date: PVCs present, T wave inversions more evident- inferior and anterolateral Medical Decision Differential diagnosis includes appendicitis, colitis, gastroenteritis, bowel obstruction, among others. The patient is a 61-year-old female who presents today complaining of right lower quadrant abdominal pain. Patient had an outpatient CT performed which showed a thick-walled appendix with mild periappendiceal fat stranding, likely representing acute appendicitis. She is tender over the right lower quadrant. Labs revealed no leukocytosis. General surgery was consulted and will take the patient to the OR for operative management of her acute appendicitis. She is otherwise asymptomatic and did not require any analgesics or antiemetics in the emergency department. Medication Reconcilliation Current Medication List: was personally reviewed by me Blood Pressure Screening Patient's blood pressure: Elevated blood pressure Blood pressure disposition: Elevated BP felt to be situational Impression Primary Impression: Acute appendicitis Departure Information Referrals Ray Pan M.D. (PCP) Patient Instructions My [facility] Problem Qualifiers Primary Impression: Acute appendicitis Acute appendicitis type: with localized peritonitis Qualified Codes: K35.3 - Acute appendicitis with localized peritonitis
[2017-08-01] MEDS ORDERED: CEFOXITIN IV 2,000 MG in DEXTROSE 5% 50ML 50 ML IV STA (22:07)
[2017-08-01] MEDS ORDERED: SCOPOLAMINE 1.5 MG TDSY TD ONE (22:20)
--- NOTE | 2017-08-01 22:22 | Discharge Instructions ---
Discharge Instructions Date of Service Aug 01, 2017. Admission Reason for Admission: Acute Appendicitis Discharge Discharge Diagnosis / Problem: Acute Appendicitis Discharge Goals Goal(s): Decrease discomfort, Improve function Activity Recommendations Activity Limitations: as noted below Lifting Limitations: no more than 10 pounds, until after follow-up appointment Exercise/Sports Limitations: until after follow-up appointment May Resume Sexual Activity: after follow-up appointment Shower/Bathe: tomorrow Driving or Machine Use: resume 3 days after discharge (Please do not drive while using narcotic pain medication) . Instructions / Follow-Up Instructions / Follow-Up You have surgical glue covering your incisions. Please allow this to fall off on its own. You have been prescribed Percocet to take as needed for pain relief. You may alternate this with Ibuprofen for better relief as well. Please follow-up with Dr. Ward in 1-2 weeks. Please contact our office at to schedule an appointment. Please contact our office with any further questions or concerns. [facility] [address] [place] [address] Current Hospital Diet Patient's current hospital diet: Discharge Diet Recommended Diet: Regular Diet Procedures Procedures Performed: Laparoscopic Appendectomy Pending Studies Studies pending at discharge: yes List of pending studies: pathology Medical Emergencies . Who to Call and When: Medical Emergencies: If at any time you feel your situation is an emergency, please call 911 immediately. . Non-Emergent Contact Non-Emergency issues call your: Primary Care Provider, Surgeon Call Non-Emergent contact if: you have a fever, temperature is above 101.5, your pain is not controlled, your pain is worsening, wound has increased drainage, wound has increased redness . "Provider Documentation" section prepared by Ghassan Decker. . VTE Core Measure Inpt VTE Proph given/why not?: SCD's [place] Drug Monitoring Program Search Results: patient reviewed within database, no issues identified
[2017-08-01] MEDS ORDERED: EpHEDrine SULFATE INJ 50 MG/ML AMP IV PRN (22:30)
[2017-08-01] MEDS ORDERED: ATROPINE SULFATE 0.1 MG/ML 5ML SYR IV PRN (22:30)
[2017-08-01] MEDS ORDERED: HYDROmorphone INJ 1 MG/ML SYR IV PRN (22:30)
[2017-08-01] MEDS ORDERED: PHENYLEPHRINE 100MCG/ML 5ML SYR IV PRN (22:30)
[2017-08-01] MEDS ORDERED: PROMETHAZINE HCL INJ 12.5 MG in SODIUM CHLORIDE 0.9% 50ML 50 ML IV PRN (22:30)
[2017-08-01] MEDS ORDERED: ONDANSETRON INJ 2 MG/ML 2 ML VIAL IV PRN (22:30)
[2017-08-01] MEDS ORDERED: FENTANYL CITRATE INJ 50 MCG/1 ML 2 ML VIAL IV PRN (22:30)
[2017-08-01] MEDS ORDERED: DEXAMETHASONE SOD INJ 4 MG/ML VIAL ONE ×2 (23:09)
[2017-08-01] MEDS ORDERED: ONDANSETRON INJ 2 MG/ML 2 ML VIAL ONE (23:09)
[2017-08-01] MEDS ORDERED: GLYCOPYRROLATE INJ 0.2 MG/ML VIAL ONE (23:32)
[2017-08-01] MEDS ORDERED: NEOSTIGMINE METHYLSULFATE 5 MG/5 ML SYR ONE (23:33)
--- NOTE | 2017-08-01 23:50 | [facility] Operative Report ---
Operative Report Operative Date Aug 01, 2017. Pre-Operative Diagnosis Acute Appendicitis Post-Operative Diagnosis Acute, suppurative, nonperforated appendicitis Procedure(s) Performed Laparoscopic appendectomy Surgeon Dr Ward [employer] Surgeon(s) Ghassan Decker Estimated Blood Loss 4cc Findings Acute, suppurative, nonperforated appendicitis Specimens As Per Surgeon A. Appendix Drains None Anesthesia GETA Complication(s) None Disposition Recovery Room / PACU Indications 61-year-old female with abdominal pain that migrated to her right lower quadrant , CT scan and exam consistent with appendicitis. Plan for laparoscopic appendectomy. The risks of the procedure were discussed, all questions were answered, and the patient agreed to proceed with surgery as planned. Description of Procedure The patient was properly identified, consented, and taken to the operating room where she was placed in the supine position. General endotracheal anesthesia was induced. SCDs and a safety belt were placed. Preoperative antibiotics were administered. A Fox catheter was not placed. The patient's abdomen was prepped and draped in the standard sterile fashion. Surgical timeout was performed and all parties were in agreement that this was the correct patient and procedure to be performed and we continued as planned. A curvilinear infraumbilical incision was made with electrocautery and deepened down to the fascia with blunt dissection. The base of the umbilicus was grasped with a Susan and elevated towards the ceiling. An incision was made in the midline fascia with a knife and entry into the peritoneum was confirmed. Stay suture of 0 Vicryl was placed and a Lyle trocar was inserted. The abdomen was insufflated with carbon dioxide which the patient tolerated without incident. The laparoscope was inserted and no damage from initial trocar placement was noted, no gross abnormalities were noted within the 4 quadrants the abdomen. 5 mm ports were then placed in the left lower quadrant with care not to damage the epigastric vessels, and in the suprapubic midline with care not to damage the bladder. The patient was placed in Trendelenburg position and rotated towards the left. The small bowel was swept away from the right lower quadrant. The cecum was grasped with an atraumatic grasper exposing the appendix. The appendix was mildly inflamed and there was no evidence of perforation. There was no fluid in the pelvis. A window was created between the base of the appendix and the mesoappendix. A bowling loaded endoscopic stapler was then used to divide the appendix at its base. A bowling load was then used to divide the mesoappendix. Hemostasis was good. The appendix was placed in an Endo Catch bag and removed through the umbilical port site. The right lower quadrant and pelvis was irrigated and hemostasis was found to be good. 5 mm trochars were removed under direct visualization and the abdomen was allowed to collapse. The umbilical port site fascia was closed with 0 Vicryl suture. The wound was irrigated, and the skin of all ports was closed with 4-0 Monocryl subcuticular sutures. Dermabond was placed over the wounds. The patient was extubated in the operating room and taken to the PACU where she recovered without apparent incident. All sponge, instrument and needle counts were correct at the conclusion of the procedure. The patient tolerated the procedure well. The physician's elementary assistant teacher was present and scrubbed for the entirety of the case. He was essential in positioning the patient, prepping and draping, entry into the abdomen, retraction and exposure, removal of the appendix, closure of the incisions, and placement of the dressings. I attest to the content of the Intraoperative Record and any orders documented therein. Any exceptions are noted below.
--- NOTE | 2017-08-01 23:51 | [facility] Post Operative Brief Note ---
Immediate Operative Summary Operative Date Aug 01, 2017. Pre-Operative Diagnosis Acute Appendicitis Post-Operative Diagnosis Acute Appendicitis Procedure(s) Performed Laparoscopic Appendectomy Surgeon Dr Ward Ager Operator Surgeon(s) Ghsasan Decker Estimated Blood Loss 4cc Findings Consistent with Post-Op Diagnosis Acute, suppurative, nonperforated appendicitis Specimens As Per Surgeon A. Appendix Drains None Anesthesia Type General Complication(s) none Disposition Accompanied Pt To Recover: no Disposition: Recovery Room / PACU
[2017-08-02] VITALS (9 sets, daily range): BP systolic 108–143; BP diastolic 63–80; PULSE 72–115; TEMP 36.3–36.7; O2SAT 95–97; Ht 167.6 cm; Wt 71.1 kg
[2017-08-02] MEDS ORDERED: ESMOLOL HCL 10 MG/ML 10 ML VIAL ONE (00:01)
[2017-08-02] MEDS ORDERED: HYDROmorphone INJ 1 MG/ML SYR IV PRN ×2 (00:15)
[2017-08-02] MEDS ORDERED: OXYCODONE/ACETAMINOPHEN 5-325 TAB PO PRN ×2 (00:15)
[2017-08-02] MEDS ORDERED: ACETAMINOPHEN IV 100 ML IV PRN (00:15)
[2017-08-02] MEDS ORDERED: ONDANSETRON INJ 2 MG/ML 2 ML VIAL IV PRN (00:15)
--- NOTE | 2017-08-02 00:45 | Anesthesiology Progress Note ---
Anesthesia Post Op Note Date & Time Aug 02, 2017 at 00:44 Vital Signs Pain Intensity: 0 Vital Signs Past 12 Hours Date Time Temp Pulse Resp B/P (MAP) Pulse Ox O2 Delivery O2 Flow Rate FiO2 08/02/17 00:34 78 16 124/69 98 08/02/17 00:26 36.2 79 16 123/68 96 Room Air 08/02/17 00:16 79 16 128/70 99 Oxymask 2 08/02/17 00:06 36.2 72 16 131/74 99 Oxymask 4 08/01/17 21:56 84 16 158/75 98 08/01/17 21:04 81 16 133/72 97 Room Air 08/01/17 19:34 36.6 98 20 139/73 98 Room Air Notes Mental Status: alert / awake / arousable, participated in evaluation Pt Amnestic to Procedure: Yes Nausea / Vomiting: adequately controlled Pain: adequately controlled Airway Patency, RR, SpO2: stable & adequate BP & HR: stable & adequate Hydration State: stable & adequate Anesthetic Complications: no major complications apparent
[2017-08-02] MEDS ORDERED: IV FLUIDS COMPLETED PRN (01:15)
[2017-08-02] MEDS: LACTATED RINGER'S 1000ML 1,000 ML IV SCH ×2 (01:17→11:05)
--- NOTE | 2017-08-02 06:52 | Surgery Progress Note ---
Surgery Progress Note Date of Service Aug 02, 2017. Subjective Post OP Day: 1 + feeling well, + ambulating, + pain controlled, + nausea, + vomiting (1 episode on arrival to floor, resolved with zofran.), + diet (on clears, she has not had much yet.), No complaints, No bowel movement Objective Vital Signs: Date Time Temp Pulse Resp B/P (MAP) Pulse Ox O2 Delivery O2 Flow Rate FiO2 08/02/17 03:44 36.3 78 16 110/69 (83) 97 Room Air 08/02/17 02:45 36.4 82 16 112/69 (83) 95 Room Air 08/02/17 01:45 36.4 85 16 124/73 (90) 95 Room Air 08/02/17 01:15 115 18 139/73 (95) 95 Room Air 08/02/17 01:00 36.4 78 16 143/80 (101) 97 Room Air 08/02/17 00:45 36.4 115 18 139/73 Room Air 08/02/17 00:45 Room Air 08/02/17 00:45 Room Air 08/02/17 00:34 78 16 124/69 98 08/02/17 00:26 36.2 79 16 123/68 96 Room Air 08/02/17 00:16 79 16 128/70 99 Oxymask 2 08/02/17 00:06 36.2 72 16 131/74 99 Oxymask 4 08/01/17 21:56 84 16 158/75 98 08/01/17 21:04 81 16 133/72 97 Room Air 08/01/17 19:34 36.6 98 20 139/73 98 Room Air General Appearance: WD/WN, no apparent distress Head: normocephalic, atraumatic Respiratory/Chest: no respiratory distress, no accessory muscle use Abdomen: non distended, soft, no organomegaly, no pulsatile mass, + tenderness (incisional) Incision(s): clean, dry, intact, no erythema, no drainage Laboratory Results: Results Past 24 Hours Test 08/01/17 20:15 Range/Units White Blood Count 6.14 4.8-10.8 K/uL Red Blood Count 5.11 4.2-5.4 M/uL Hemoglobin 15.0 12.0-16.0 g/dL Hematocrit 41.6 37-47 % Mean Corpuscular Volume 81.4 80-100 fL Mean Corpuscular Hemoglobin 29.4 25-34 pg Mean Corpuscular Hemoglobin Concent 36.1 32-36 g/dl Platelet Count 168 130-400 K/uL Mean Platelet Volume 9.7 7.4-10.4 fL Neutrophils (%) (Auto) 71.9 % Lymphocytes (%) (Auto) 20.7 % Monocytes (%) (Auto) 6.5 % Eosinophils (%) (Auto) 0.5 % Basophils (%) (Auto) 0.2 % Neutrophils # (Auto) 4.42 1.4-6.5 K/uL Lymphocytes # (Auto) 1.27 1.2-3.4 K/uL Monocytes # (Auto) 0.40 0.11-0.59 K/uL Eosinophils # (Auto) 0.03 0-0.5 K/uL Basophils # (Auto) 0.01 0-0.2 K/uL RDW Standard Deviation 40.1 36.4-46.3 fL RDW Coefficient of Variation 13.6 11.5-14.5 % Immature Granulocyte % (Auto) 0.2 % Immature Granulocyte # (Auto) 0.01 0.00-0.02 K/uL Urine Color YELLOW Urine Appearance CLEAR CLEAR Urine pH 5.0 4.5-7.5 Urine Specific [place] <= 1.005 1.000-1.030 Urine Protein NEG NEG Urine Glucose (UA) NEG NEG Urine Ketones TRACE NEG Urine Occult Blood 2+ NEG Urine Nitrite NEG NEG Urine Bilirubin NEG NEG Urine Urobilinogen NEG NEG Urine Leukocyte Esterase NEG NEG Urine RBC 5-10 0-4 /hpf Urine WBC 0 0-5 /hpf Urine Epithelial Cells 0-5 0-5 /lpf Urine Bacteria NEG NEG Sodium Level 140 136-145 mmol/L Potassium Level 3.4 3.5-5.1 mmol/L Chloride Level 107 98-107 mmol/L Carbon Dioxide Level 27 21-32 mmol/L Anion Gap 6.0 3-11 mmol/L Blood Urea Nitrogen 10 7-18 mg/dl Creatinine 0.84 0.60-1.20 mg/dl Est Creatinine Clear Calc Drug Dose 71.2 ml/min Estimated GFR () 87.6 Estimated GFR (Non- 75.5 BUN/Creatinine Ratio 12.0 10-20 Random Glucose 91 70-99 mg/dl Calcium Level 9.4 8.5-10.1 mg/dl Total Bilirubin 2.2 0.2-1 mg/dl Aspartate Amino Transf (AST/SGOT) 17 15-37 U/L Alanine Aminotransferase (ALT/SGPT) 20 12-78 U/L Alkaline Phosphatase 73 45-117 U/L Total Protein 8.2 6.4-8.2 gm/dl Albumin 4.4 3.4-5.0 gm/dl Globulin 3.8 2.5-4.0 gm/dl Albumin/Globulin Ratio 1.2 0.9-2 Assessment & Plan POD #1 s/p laparoscopic appendectomy pain controlled, 1 episode of vomiting on arrival to floor, No N/V since. On Clears. She has not urinated yet. Clears for Breakfast, ADAT. D/C today if pain controlled, urinating and tolerating foods. Please contact with questions or concerns.
[2017-08-02] MEDS ORDERED: OXYC-57 PO (06:53)
--- NOTE | 2017-08-02 19:03 | Discharge Summary ---
Discharge Summary Date of Service Aug 02, 2017. Admission Date/Reason Aug 02, 2017 at 00:09 Acute Appendicitis. Discharge Date/Disposition Aug 02, 2017 Home Diagnosis Principal Diagnosis: Acute Appendicitis Procedure(s) Performed laparoscopic appendectomy Medication Reconciliation Percocet 5mg/325mg PO 1-2 Tabs Q4H PRN for pain x 2 days. Disp: 20 Tabs Admission Physical Exam As per Admitting History & Physical. Hospital Course 08/01/17: Patient presented to the ED tonkeith with periumbilical pain eventually localizing to the RLQ x 1 day. She went to her PCP this morning who ordered an U /S which was indeterminant so she was sent to the hospital for a CT scan. CT abd /pelvis showed findings consistent with acute appendicitis and she was sent to the ED. Denies nausea/vomiting. WBC WNL. At this time it was decided to take her to the OR for laparoscopic appendectomy with Dr. Ed toribio. Pre-op antibiotics given. The procedure was performed successfully without complications and the appendix was sent to pathology. The patient was then admitted to med/surg on observation for the night. She did have 1 episode of vomiting on arrival to the floor due to the anesthesia. 08/02/17: This morning her pain is controlled, nausea resolved. No new episodes of vomiting to report. She had not eaten yet but was ready to try some clears. She was discharged later today once her pain was controlled, she was tolerating some foods and urinating without trouble. She was sent home on a 2 day course of Percocet to take as needed for pain relief. She was given instructions to follow-up with Dr. Ward in the office in 1-2 weeks. Discharge Instructions Please refer to the electronic Patient Visit Report (Discharge Instructions) for additional information.
== END 2017-08-02 15:09 | disposition home or self-care (01) ==
LOC: C.EDB 19:27 → C.MSN 08-02 00:09
PROVIDERS: ADMIT Surgery; ATTEND Surgery
DX: K35.80 Unspecified acute appendicitis (principal); I10 Essential (primary) hypertension; E03.9 Hypothyroidism, unspecified; M19.90 Unspecified osteoarthritis, unspecified site; Z90.49 Acquired absence of other specified parts of digestive tract; Z96.652 Presence of left artificial knee joint; Z79.82 Long term (current) use of aspirin

== ENCOUNTER → 2017-08-01 | Outpatient (CLI) | payer OTHER ==
[~2017-08-01] MED LIST changes: +ACET-1256 PO; +ASPI81TA28 PO; +LEVO100T7 PO; +OPTIRAY 320 IV PRN; +OXYC-57 PO; +PRAV10TA39 PO; -PROM25TA9 PO
--- NOTE | 2017-08-01 14:59 | DIAGNOSTIC IMAGING REPORT ---
APPENDICEAL ULTRASOUND CLINICAL HISTORY: Right lower quadrant abdominal pain COMPARISON STUDY: No previous studies for comparison. FINDINGS: Ultrasonographic evaluation the right lower quadrant was performed. The appendix was not visualized. There are no abnormal fluid collections. IMPRESSION: Nonvisualization of the appendix. This examination is therefore nondiagnostic in regards to acute appendicitis Electronically signed by: Tae Peters M.D. 08/01/2017 2:58 PM Dictated Date/Time: 08/01/2017 2:57 PM
--- NOTE | 2017-08-01 18:53 | DIAGNOSTIC IMAGING REPORT ---
ABDOMEN AND PELVIS CT WITH IV AND ORAL CONTRAST CT DOSE: 311.00 mGy.cm HISTORY: Right lower quadrant abdominal pain. TECHNIQUE: Multiaxial CT images of the abdomen and pelvis were performed following the use of intravenous and oral contrast. A dose lowering technique was utilized adhering to the principles of ALARA. COMPARISON STUDY: None. FINDINGS: The lung bases are clear. No pneumoperitoneum. No pneumatosis. Moderate osteoarthritis within the right hip. Tiny fat-containing bilateral inguinal hernias. Cholecystectomy. A few subcentimeter hypodense lesions within the liver too small to characterize but statistically benign. The spleen is top normal in size. No hydronephrosis. A 4 mm stone within the lower pole of the right kidney. A 9 mm hypodense lesion within the upper pole of the left kidney is too small to characterize. Normal pancreas. No retroperitoneal lymphadenopathy. The bladder, uterus, and ovaries are unremarkable. No pelvic free fluid. No evidence for bowel obstruction. Thick-walled appendix demonstrating mild periappendiceal fat stranding. The appendix measures up to 8 mm in diameter. There is small amount of contrast within the appendix. IMPRESSION: 1. Thick-walled appendix demonstrating mild periappendiceal fat stranding. The appendix measures up to 8 mm in diameter. Therefore, these findings likely represent acute appendicitis. 2. Right-sided nephrolithiasis. No hydronephrosis. 3. Cholecystectomy. 4. No evidence for bowel obstruction. Electronically signed by: Darnell Marquez M.D. 08/01/2017 7:06 PM Dictated Date/Time: 08/01/2017 6:43 PM
== END | disposition home or self-care (01) ==
LOC: C.ULTRBC 14:24
PROVIDERS: ATTEND Family Medicine
DX: R10.31 Right lower quadrant pain (principal); N20.0 Calculus of kidney; Z90.49 Acquired absence of other specified parts of digestive tract

== ENCOUNTER 2017-09-28 04:56 | Inpatient (IN) | payer BC, OTHER ==
[2017-09-04 14:48] VITALS: BMI 26.0
--- NOTE | 2017-09-04 15:15 | PAT Medication Instructions ---
Service Date Sep 04, 2017. Current Home Medication List Alendronate Sodium (Fosamax), 70 MG PO WK Aspirin (Aspirin Ec), 81 MG PO HS Cholecalciferol (Vitamin D), 1,000 INTER.UNIT PO QPM Levothyroxine Sodium (Levothyroxine Sodium), 100 MCG PO QAM Losartan Potassium (Losartan Potassium), 25 MG PO QAM Naproxen (Aleve), 220-440 MG PO UD PRN for Pain Pravastatin Sodium (Pravastatin Sodium), 10 MG PO HS Medication Instructions For Your Scheduled Surgery -Continue as directed (but do not take AM day of surgery): Alendronate Sodium (Fosamax), 70 MG PO WK - Hold the following medications 2 weeks prior to surgery per surgeon's instructions: Naproxen (Aleve), 220-440 MG PO UD PRN for Pain - Hold the following medications the morning of surgery: Losartan Potassium (Losartan Potassium), 25 MG PO QAM - Take the following medications the morning of surgery with a sip of water: Levothyroxine Sodium (Levothyroxine Sodium), 100 MCG PO QAM - Take the following medications as scheduled the night before surgery: Aspirin (Aspirin Ec), 81 MG PO HS Cholecalciferol (Vitamin D), 1,000 INTER.UNIT PO QPM Pravastatin Sodium (Pravastatin Sodium), 10 MG PO HS If you have any questions please call us at [phone] or [phone] or [phone]
--- NOTE | 2017-09-04 15:52 | DIAGNOSTIC IMAGING REPORT ---
CHEST 2 VIEWS ROUTINE CLINICAL HISTORY: Preoperative chest COMPARISON STUDY: The 2016 FINDINGS: The cardiac and mediastinal contours are normal. There is no evidence of focal pulmonary consolidation. There is no evidence of failure. No pleural effusions are visualized.[ IMPRESSION: No active disease in the chest. Electronically signed by: Tae Peters M.D. 09/04/2017 3:51 PM Dictated Date/Time: 09/04/2017 3:50 PM
[2017-09-04 16:05] LABS: PTT PATIENT 26.5 SECONDS (21.0-31.0)
[2017-09-04 16:16] LABS: BLOOD UREA NITROGEN 15 mg/dl (7-18); CALCIUM 8.7 mg/dl (8.5-10.1); CARBON DIOXIDE 29 mmol/L (21-32); CREATININE 0.85 mg/dl (0.60-1.20); GLUCOSE 92 mg/dl (70-99); POTASSIUM 3.9 mmol/L (3.5-5.1); SODIUM 141 mmol/L (136-145)
--- NOTE | 2017-09-22 09:03 | HISTORY & PHYSICAL EXAMINATION ---
DATE OF ADMISSION: 09/28/2017 CHIEF COMPLAINT: Right hip pain. HISTORY OF PRESENT ILLNESS: This is a 62-year-old female who is now a little over a year out from left knee replacement, who presents for surgical treatment of her right hip. The patient had a long history of right hip pain and discomfort that has gradually gotten worse over time. Since we fixed her knee and it is less painful, she has been able to walk more and she is having more hip pain. She describes groin pain, buttock pain, thigh pain going to knee. No numbness. She does limp. The more she walks, the more she limps. She has difficulty putting her shoes and socks on. She has taken anti-inflammatories which take the edge off at best. She is ready to have her hip fixed. PAST MEDICAL HISTORY: 1. Hypertension. 2. Elevated cholesterol. 3. Hypothyroidism. 4. Low back pain/sciatica. 5. Arthritis. PAST SURGICAL HISTORY: Include: 1. . 2. Left knee replacement done on 08/28/2016. 3. Cholecystectomy. ALLERGIES: None. CURRENT MEDICINES: 1. Levothyroxine 100 mcg a day. 2. Aspirin 81 mg a day. 3. Vitamin D 1000 mg a day. 4. Alendronate 70 mg a week. 5. Aleve. 6. Losartan 25 mg a day. 7. Pravastatin 10 mg a day. SOCIAL HISTORY: A 62-year-old female. She is . Her is pretty disabled and she takes care of him. She does not smoke. No significant alcohol intake. FAMILY HISTORY: Negative for heart disease, diabetes, or blood clots. REVIEW OF SYSTEMS: Negative for diabetes, neurologic problems, vascular problems or bleeding disorders. No history of DVT or PE. PHYSICAL EXAMINATION: GENERAL: Reveals a healthy, pleasant middle-aged female, who looks to be in good health. HEENT: Benign. NECK: Supple, no lymphadenopathy. LUNGS: Clear to auscultation. HEART: Regular rate and rhythm. ABDOMEN: Soft, nontender, nondistended. EXTREMITIES: Grossly neurovascularly intact except as follows: Examination of the right hip and leg reveals patient walks with a bit of a flexion contracture. Leg lengths clinically appear pretty equal. She has a very stiff with internal rotation of -10 and external rotation at 20 degrees. Negative straight leg raise. X-RAYS: X-rays of the right hip were reviewed. Shows advanced right hip DJD. She has complete loss of her superior joint space. She has got cystic changes on both sides of the joint. ASSESSMENT: A 62-year-old female, a little over a year out from a left knee replacement with advanced right hip degenerative joint disease. The patient has failed conservative treatment and would like to have her right hip fixed. PLAN: We will take her to the operating room and do a right total hip replacement. The risks and benefits of this procedure were explained to patient included but not limited to DVT, PE, , infection, neurological injury, vascular injury, bleeding problem, pain, limited range of motion, stiffness, failure to relieve her symptoms, incomplete relief of symptoms, need for further surgery in future, fracture, leg length inequality, nerve palsy, etc. The patient understands and desires to proceed. Informed consent was obtained. The patient does have arthritis on this side in her knee as well and will likely need that done in the future, but her hip seems to be more limiting factor now. As far as discharge plans, she is planning to be discharged to home using [facility] home health program. We will try and limit her use of narcotics due to her intolerance and use tramadol and NSAIDS. VIV
[2017-09-28] VITALS (21 sets, daily range): BP systolic 92–151; BP diastolic 51–89; PULSE 53–94; TEMP 36.4–37.1; O2SAT 95–100; Ht 167.6 cm; Wt 72.6 kg
[~2017-09-28] VITALS: Ht 167.6 cm; Wt 72.6 kg
[~2017-09-28 04:56] MED LIST changes: -ACET-1138 PO; -ASPEC325 PO; +ASPI81TA28 PO; +LEVO100T7 PO; -LEVO88TA PO; +PRAV10TA39 PO; -PRAV20TA PO; -ULT50X PO
[2017-09-28] MEDS ORDERED: LACTATED RINGER'S 1000ML 500 ML IV SCH (06:00)
[2017-09-28] MEDS ORDERED: GABAPENTIN 600 MG PO SCH (06:00)
[2017-09-28] MEDS ORDERED: LACTATED RINGER'S 1000ML IV SCH (06:00)
[2017-09-28] MEDS ORDERED: TRANEXAMIC ACID INJ 1,000 MG x 1 Bag Intra-Op IV SCH ×2 (06:00)
[2017-09-28] MEDS ORDERED: FAMOTIDINE 20 MG TAB PO SCH (06:00)
[2017-09-28] MEDS ORDERED: SCOPOLAMINE 1.5 MG TDSY TD SCH (06:00)
[2017-09-28] MEDS ORDERED: LACTATED RINGER'S 1000ML 1,000 ML IV SCH (06:00)
[2017-09-28] MEDS ORDERED: ACETAMINOPHEN 500 MG TAB PO SCH (06:00)
[2017-09-28] MEDS ORDERED: CEFAZOLIN 2000MG IV PUSH 15 ML IV SCH (06:00)
[2017-09-28] MEDS ORDERED: METOCLOPRAMIDE HCL 10 MG TAB PO SCH (06:00)
[2017-09-28] MEDS ORDERED: BUPIVACAINE 0.5 % 5 MG/1 ML PF 10ML VIAL ONE (06:29)
[2017-09-28] MEDS ORDERED: MIDAZOLAM HCL 1 MG/ML 2ML VIAL ONE (06:33)
[2017-09-28] MEDS ORDERED: FENTANYL CITRATE INJ 50 MCG/1 ML 2 ML VIAL ONE (06:34)
[2017-09-28] MEDS ORDERED: PROPOFOL IV EMULSION 10 MG/ML 20 ML VIAL IV ONE (06:35)
[2017-09-28] MEDS ORDERED: MoRPHine SULFATE PF 1 MG/ML 10 ML AMP/VIAL ONE (06:38)
[2017-09-28] MEDS ORDERED: BACITRACIN 50000 UNIT VIAL ONE (06:41)
[2017-09-28] MEDS ORDERED: BUPIVACAINE/EPINEPHRINE 0.5% MPF 1:200,000 30 ML VIAL ONE (06:41)
[2017-09-28] MEDS ORDERED: ONDANSETRON INJ 2 MG/ML 2 ML VIAL ONE (06:58)
[2017-09-28] MEDS ORDERED: DEXAMETHASONE SOD INJ 4 MG/ML VIAL ONE (06:58)
[2017-09-28] MEDS ORDERED: SODIUM CHLORIDE 0.9% 1000ML 1,000 ML IV PRN (07:20)
[2017-09-28] MEDS ORDERED: NALOXONE HCL INJ 0.08 MG in SYRINGE 1.8 ML IV PRN (07:20)
[2017-09-28] MEDS ORDERED: LACTATED RINGER'S 1000ML 500 ML IV PRN (07:20)
[2017-09-28] MEDS ORDERED: NALOXONE HCL INJ 1 MG in SODIUM CHLORIDE 0.9% 1000ML 1,000 ML IV PRN (07:20)
[2017-09-28] MEDS ORDERED: PHENYLEPHRINE 100MCG/ML 5ML SYR ONE (07:29)
[2017-09-28] MEDS ORDERED: PHENYLEPHRINE HCL INJ 10 MG/ML VIAL ONE (07:29)
[2017-09-28] MEDS ORDERED: NALOXONE HCL 0.4 MG/1 ML VIAL/CARP IV PRN (07:30)
[2017-09-28] MEDS ORDERED: ONDANSETRON INJ 2 MG/ML 2 ML VIAL IV PRN ×2 (07:30)
[2017-09-28] MEDS ORDERED: NO NARCOTICS OR SEDATIVES SCH (07:30)
[2017-09-28] MEDS ORDERED: NALBUPHINE HCL INJ 10 MG/ML AMP IV PRN (07:30)
[2017-09-28] MEDS ORDERED: DiphenhydrAMINE HCL 50 MG/ML VIAL IV PRN (07:30)
[2017-09-28] MEDS ORDERED: EpHEDrine SULFATE INJ 50 MG/ML AMP IV PRN ×2 (07:30)
[2017-09-28] MEDS ORDERED: MoRPHine SULFATE 2 MG/ML CARP IV PRN (07:30)
[2017-09-28] MEDS ORDERED: ATROPINE SULFATE 0.1 MG/ML 5ML SYR IV PRN (07:30)
[2017-09-28] MEDS ORDERED: EpHEDrine SULFATE 50MG/5ML SYR ONE (07:30)
[2017-09-28] MEDS ORDERED: MoRPHine SULFATE PF 1 MG/ML 10 ML AMP/VIAL INT SPINAL PRN (07:30)
--- NOTE | 2017-09-28 08:28 | [facility] Post Operative Brief Note ---
Immediate Operative Summary Operative Date Sep 28, 2017. Pre-Operative Diagnosis Advanced Right Hip Degenerative Joint Disease Post-Operative Diagnosis Advanced Right Hip Degenerative Joint Disease Procedure(s) Performed Right Total Hip Arthroplasty Uncemented Surgeon Dr Noble Director Records Management Surgeon(s) Jose Raul Choudhary PA-C Estimated Blood Loss 300mL Findings Consistent with Post-Op Diagnosis Fluids (cc crystalloids) 1200 cc Specimens As Per Surgeon A. Right Femeral Head Drains None Anesthesia Type Spinal MAC Complication(s) none Disposition Accompanied Pt To Recover: yes Disposition: Recovery Room / PACU
[2017-09-28] MEDS ORDERED: MAGNESIUM HYDROXIDE SUSP 30 ML UDC PO PRN (08:30)
[2017-09-28] MEDS ORDERED: ALUMINUM/MAGNESIUM/SIMETH (MAALOX MAX) 30 ML UDC PO PRN (08:30)
[2017-09-28] MEDS ORDERED: BISACODYL 10 MG SUPP PR PRN (08:30)
[2017-09-28] MEDS ORDERED: SILVER SULFADIAZINE 1% CR 50 GM JAR EXT PRN (08:30)
--- NOTE | 2017-09-28 08:51 | DIAGNOSTIC IMAGING REPORT ---
R PELVIS/UNILATERAL HIP 1 VIEW CLINICAL HISTORY: 62 years-old Female presenting with IN PACU - A/P PELVIS and LATERAL HIP INCLUDING ALL OF IMPLANT. TECHNIQUE: Single frontal view of the pelvis and crosstable lateral view of the right hip were obtained. COMPARISON: CT from 08/01/2017. FINDINGS: There has been interval total right hip arthroplasty. No malalignment. No periprosthetic fracture. Expected intra-articular and soft tissue emphysema. Overlying skin damaris. No hardware complication no significant degenerative change of the left hip. Visualized portion of the bony pelvis intact. IMPRESSION: Expected postsurgical appearance status post total right hip arthroplasty. Electronically signed by: Jorge L Tavares M.D. 09/28/2017 8:49 AM Dictated Date/Time: 09/28/2017 8:48 AM
--- NOTE | 2017-09-28 09:30 | Anesthesiology Progress Note ---
Anesthesia Post Op Note Date & Time Sep 28, 2017 at 09:30 Vital Signs Pain Intensity: 0 Vital Signs Past 12 Hours Date Time Temp Pulse Resp B/P (MAP) Pulse Ox O2 Delivery O2 Flow Rate FiO2 09/28/17 09:15 78 16 112/69 99 Nasal Cannula 2 09/28/17 09:05 36.3 87 17 128/73 99 Nasal Cannula 2 09/28/17 08:55 133 16 149/86 98 Nasal Cannula 2 09/28/17 08:45 89 14 120/69 99 Oxymask 10 09/28/17 08:35 103 22 121/71 100 Oxymask 10 09/28/17 08:27 36.6 114 14 108/68 97 Oxymask 10 09/28/17 05:43 37.1 81 18 151/89 Room Air 97 Notes Mental Status: alert / awake / arousable, participated in evaluation Pt Amnestic to Procedure: Yes Nausea / Vomiting: adequately controlled Pain: adequately controlled Airway Patency, RR, SpO2: stable & adequate BP & HR: stable & adequate Hydration State: stable & adequate Neuraxial Anesthesia: was administered, sensory block is resolving Anesthetic Complications: no major complications apparent
[2017-09-28] MEDS ORDERED: PROMETHAZINE HCL INJ 12.5 MG in SODIUM CHLORIDE 0.9% 50ML 50 ML IV PRN (09:45)
--- NOTE | 2017-09-28 09:46 | OPERATIVE REPORT ---
DATE OF OPERATION: 09/28/2017 SURGEON: Hemant Noble MD FOOTBALL COACH: BRODIE Spivey PREOPERATIVE DIAGNOSIS: Right uncemented ceramic on highly cross-linked polyethylene total hip arthroplasty. COMPLICATIONS: None. ESTIMATED BLOOD LOSS: 300 mL. FLUID REPLACEMENT: 1200 mL crystalloid fluid replacement. ANESTHESIA: Spinal. DRAINS: None. SPECIMENS: Right femoral head sent for pathology. OPERATIVE INDICATIONS: The patient is a 62-year-old fairly active female who has had a long history of hip and knee arthritis. She underwent a left knee replacement a year ago, has done well from this. Over the past year, she developed increased pain, discomfort, and limitation with respect to her right hip. She has arthritis in her right knee as well, but it felt the hip was a major limiting factor. She elected to proceed with total hip arthroplasty. Of note, the patient had a clinical leg length discrepancy with the right side a bit longer than the left and we do all we could to shorten this leg a little bit and make it clinically at least equal to the other side. OPERATIVE FINDINGS: Operative findings were advanced right hip DJD. She had extensive grade 4 change of the femoral head and acetabulum with osteophytes around the femoral head circumferentially. A moderate-sized joint effusion. Fairly stiff hip with a flexion contracture. OPERATIVE IMPLANTS: Operative implants consisted of: 1. Biomet G7 size 52 mm acetabular shell. 2. An apex hole eliminator. 3. 6.5 cancellous acetabular screws, one 35 mm length and one 25 mm length. 4. Highly cross-linked polyethylene liner with a 52 mm outer diameter and a 32 mm inner diameter. 5. DePuy size 13 KLA high offset CORAIL femoral stem. 6. +1/32 mm ceramic articular ball. OPERATIVE PROCEDURE: The patient was taken to the operating room, identified, and placed on the operating table in supine position. All contact areas were appropriately padded. IV antibiotics were provided by anesthesia team. A spinal anesthetic had been implemented in the holding area. A Fox catheter was placed in sterile fashion. The patient was then placed in the left lateral decubitus position. An axillary roll was placed. [facility] hip positioner was used for positioning. The right hip and leg were then prepped and draped in usual sterile fashion. A posterolateral approach to the right hip was then performed through a curvilinear incision centered over the greater trochanter. Sharp dissection was carried through subcutaneous tissue down to the level of the IT band and gluteal fascia. The IT band and gluteal fascia were incised longitudinally in line with the skin incision. The underlying greater trochanteric bursa was excised. The piriformis and external rotators were tagged and taken off the posterior aspect of the femur. Great care was taken throughout the procedure to protect the sciatic nerve at all times. Posterior capsulotomy was then performed leaving a large flap for later repair. Hip was internally rotated and dislocated. A femoral neck osteotomy cut was made with the final cut about 8 mm above the lesser trochanter. The femoral head was removed and sent for pathology. The femur was retracted anteriorly. Attention was then drawn to the acetabulum. The acetabular labrum was excised. The pulvinar fat was excised. Sequential reaming of the acetabulum was then performed beginning with a size 43 and progressing up to 51. A 52 mm Biomet G7 acetabular shell was then placed in about 40 degrees of lateral opening and 20 degrees of anteversion. It was fixed with two 6.5 cancellous acetabular screws. I did take some osteophytes off anteriorly. The trial liner was placed. Attention was then drawn to the femur. The proximal femur was entered with Quickshiftie cutter followed by a canal finder. I then broached beginning with a size 8 and progressing up to 13. I struggled to make an incision to the broach to the 13, but we got this down quite nicely in a perfect fit. The calcar reamer was used to smoothen off the calcar. We trialed the hip. I wanted to shorten her a little bit, so we elected to use the +1 articular ball. The hip was fully stable in full extension and external rotation and flexion to 90 degrees, internal rotation to 60+ degrees. I did feel I likely shortened her a little bit, which was the goal and her hip was fully stable. We elected to use these implants. All trial implants were removed. An apex hole eliminator was placed. Highly cross-linked polyethylene liner was placed. A 13 high offset CORAIL femoral stem was impacted in position. A +1/32 mm ceramic articular ball was placed. The hip was located and once again found to be stable. Attention was then drawn toward closing. The wound was irrigated with copious amounts of pulsatile lavage solution. I did inject locally with 60 mL of 0.5% Marcaine with epinephrine. The posterior capsule and external rotators were repaired through drill holes in the posterior trochanter with #2 Ti-Cron suture. The IT band and gluteal fascia were then closed in 1-0 PDS suture in running fashion. The subcutaneous tissue was then closed in 2 layers, the deep layer #1 Vicryl suture and subcutaneous tissues with 2-0 Dexon suture in buried interrupted fashion. The skin was closed skin damaris. The leg was then cleaned and dried and a sterile dressing of Xeroform, 4 x 4s, sterile ABD pad, and foam tape was applied. The patient was then transferred to the recovery room in stable condition. The patient tolerated with no complications. All needle and sponge counts were correct at the end of the operation. I attest to the content of the Intraoperative Record and any orders documented therein. Any exceptions are noted below. MTDD
[2017-09-28] MEDS: DOCUSATE SODIUM 100 MG CAP PO SCH ×2 (11:15→20:21)
[2017-09-28] MEDS: MULTIVITAMIN TAB PO SCH (11:16)
[2017-09-28] MEDS: LOSARTAN POTASSIUM 25 MG TAB PO SCH (11:16)
[2017-09-28] MEDS: PANTOprazole SOD 40 MG TAB PO SCH (11:16)
[2017-09-28] MEDS: D5W AND 1/2NSS + 20MEQ KCL 1,000 ML IV SCH ×2 (12:21→20:21)
[2017-09-28] MEDS: KETOROLAC TROMETHAMINE 30 MG/ML VIAL IV. SCH ×3 (12:22→23:34)
[2017-09-28] MEDS: FERROUS GLUCONATE 324 MG TAB PO SCH ×2 (12:23→17:52)
--- NOTE | 2017-09-28 13:44 | PROGRESS NOTE ---
DATE: 09/28/2017 SUBJECTIVE: A 62-year-old white female postop from a right hip replacement. She is doing well. Feeling a little bit nauseated. Not having any pain yet. No chest pain or shortness of breath. Not feeling dizzy or lightheaded. OBJECTIVE: VITAL SIGNS: Temperature is 36.4. Vital signs stable. GENERAL: A pleasant, middle-aged female. She is lying in bed and resting and dozing in and out of sleep when I visit her this afternoon. LUNGS: Clear to auscultation. HEART: Has regular rate and rhythm. ABDOMEN: Soft, nontender, nondistended. EXTREMITIES: Grossly neurovascularly intact except as follows: Examination of the right leg reveals the leg lengths to be equal. Hip is located. Dressing is clean, dry and intact. Thigh is soft and supple. She can dorsiflex and plantarflex her foot appropriately. She is neurologically intact. X-ray of the right hip from recovery room reviewed. Shows a right uncemented total hip arthroplasty. Components looked to be in good position. No signs of problems. ASSESSMENT: A 62-year-old white female postop from right knee hip replacement, doing well. A little bit nauseated, which is not unexpected for her, as she has got a fairly low medicine tolerance. Pain is controlled. Hip is located. She is neurologically intact. PLAN: 1. DVT prophylaxis including thigh-high TEDs, SCDs, and aspirin twice. 2. PT/OT. Weight bear as tolerated. Right total knee protocol. 3. Pain control, doing pretty well with current pain regimen. We will have to be careful and try and limit narcotics. Will use Tylenol, Toradol, and tramadol. 4. IV antibiotics x24 hours. 5. Disposition: She is hoping to be discharged home with some home health once adequately recovered.
[2017-09-28] MEDS: CEFAZOLIN IV 1,000 MG in SYRINGE 0 ML IV SCH ×2 (14:26→21:35)
[2017-09-28] MEDS: ACETAMINOPHEN 500 MG TAB PO SCH ×2 (14:26→20:23)
[2017-09-28] MEDS ORDERED: TRANEXAMIC ACID INJ 1,000 MG in SODIUM CHLORIDE 0.9% 100ML 100 ML IV SCH (14:30)
[2017-09-28] MEDS: CHECK SCOPOLAMINE PATCH PLACEMENT SCH ×2 (15:40→23:25)
[2017-09-28] MEDS: SENNA 8.6 MG TAB PO SCH (20:21)
[2017-09-28] MEDS: PRAVASTATIN SOD 10 MG TAB PO SCH (20:21)
[2017-09-28] MEDS: ASPIRIN 81 MG ECTAB PO SCH (20:22)
[2017-09-28] MEDS: CHOLECALCIFEROL 1000 INTER.UNIT TAB PO SCH (20:22)
[2017-09-29] VITALS (10 sets, daily range): BP systolic 85–112; BP diastolic 49–68; PULSE 60–90; TEMP 36.6–37.2; O2SAT 96–100
[2017-09-29] MEDS ORDERED: ZOLPIDEM TARTRATE 5 MG TAB PO PRN (01:00)
[2017-09-29] MEDS ORDERED: ONDANSETRON INJ 2 MG/ML 2 ML VIAL IV PRN (01:00)
[2017-09-29] MEDS ORDERED: METOCLOPRAMIDE HCL INJ 5 MG/ML 2 ML VIAL IV PRN (01:00)
[2017-09-29] MEDS ORDERED: DiphenhydrAMINE HCL 50 MG/ML VIAL IV PRN (01:00)
[2017-09-29] MEDS ORDERED: DC INTRASPINAL MORPHINE SCH (01:00)
[2017-09-29] MEDS ORDERED: HYDROmorphone INJ 0.5 MG/0.5 ML SYR IV PRN (01:00)
[2017-09-29] MEDS: ACETAMINOPHEN 500 MG TAB PO SCH ×3 (06:04→21:30)
[2017-09-29] MEDS: LEVOTHYROXINE 100 MCG TAB PO SCH (06:04)
[2017-09-29] MEDS: KETOROLAC TROMETHAMINE 30 MG/ML VIAL IV. SCH ×4 (06:04→23:50)
[2017-09-29] MEDS: D5W AND 1/2NSS + 20MEQ KCL 1,000 ML IV SCH (06:05)
[2017-09-29 06:31] LABS: HEMATOCRIT 27.8 % (37-47); HEMOGLOBIN 9.7 g/dL (12.0-16.0); MEAN CELL VOLUME 83.5 fL (80-100); MEAN CORPUSCULAR HEMOGLOBIN 29.1 pg (25-34); MEAN CORPUSCULAR HGB CONC 34.9 g/dl (32-36); RED CELL DISTRIBUTION WIDTH CV 13.5 % (11.5-14.5); RED CELL DISTRIBUTION WIDTH SD 41.2 fL (36.4-46.3); WHITE BLOOD COUNT 3.99 K/uL (4.8-10.8)
[2017-09-29 07:04] LABS: CALCIUM 7.7 mg/dl (8.5-10.1); CREATININE 0.84 mg/dl (0.60-1.20); POTASSIUM 3.6 mmol/L (3.5-5.1)
[2017-09-29 07:13] LABS: MEAN PLATELET VOLUME 9.3 fL (7.4-10.4); PLATELET COUNT 97 K/uL (130-400)
[2017-09-29 07:14] LABS: BASO % 0.3 %; BASO ABS # 0.01 K/uL (0-0.2); EOS % 0.8 %; EOS ABS # 0.03 K/uL (0-0.5); IG# 0.01 K/uL (0.00-0.02); LYMPH % 15.7 %; MONO % 8.1 %; MONO ABS # 0.31 K/uL (0.11-0.59); NEUT % 74.8 %; NEUT ABS # 2.86 K/uL (1.4-6.5)
[2017-09-29] MEDS ORDERED: FRRG PO (08:09)
[2017-09-29] MEDS ORDERED: ASPI-320 PO (08:09)
[2017-09-29] MEDS ORDERED: ONDA4TAB65 PO (08:09)
[2017-09-29] MEDS ORDERED: ACET-24 PO (08:09)
[2017-09-29] MEDS ORDERED: ULT50X PO (08:09)
[2017-09-29] MEDS: CHECK SCOPOLAMINE PATCH PLACEMENT SCH ×3 (08:52→23:51)
[2017-09-29] MEDS: FERROUS GLUCONATE 324 MG TAB PO SCH ×3 (08:53→17:54)
[2017-09-29] MEDS: MULTIVITAMIN TAB PO SCH (08:53)
[2017-09-29] MEDS: ASPIRIN 81 MG ECTAB PO SCH ×2 (08:53→20:42)
[2017-09-29] MEDS: DOCUSATE SODIUM 100 MG CAP PO SCH ×2 (08:53→20:42)
[2017-09-29] MEDS: PANTOprazole SOD 40 MG TAB PO SCH (08:53)
[2017-09-29] MEDS: LOSARTAN POTASSIUM 25 MG TAB PO SCH (08:55)
--- NOTE | 2017-09-29 08:59 | PROGRESS NOTE ---
DATE: 09/29/2017 SUBJECTIVE: A 62-year-old white female postop day 1 from a right hip replacement. She is doing well. Pain is controlled. No chest pain or shortness of breath. Not feeling dizzy or lightheaded. OBJECTIVE: VITAL SIGNS: Temperature 36.9. Vital signs stable. GENERAL: Physical examination shows a pleasant, middle-aged female. She is sitting up in her bedside chair and looks comfortable. EXTREMITIES: Examination of the right hip and leg reveals leg lengths were equal. Hip is located. Dressing is clean, dry and intact. Thigh is soft and supple. She is neurologically intact. LABORATORY DATA: Hemoglobin 9.7. Hematocrit 27.8. Electrolytes are stable. ASSESSMENT: A 62-year-old white female postop day 1 from right hip replacement, doing well. Pain is controlled. Hips located. She is neurologically intact. She is anemic, but without symptoms. PLAN: 1. DVT prophylaxis including thigh-high TEDs, SCDs, and aspirin twice a day. 2. PT/OT. Weightbearing as tolerated. Right total knee protocol. 3. Pain control, doing pretty well with current pain regimen. 4. Anemia. Currently, asymptomatic. Will continue iron supplementation. 5. Disposition: She is hoping to be discharged to home with some home health once adequately recovered.
[2017-09-29] MEDS: TRAMADOL HCL 50 MG TAB PO PRN (10:54)
--- NOTE | 2017-09-29 20:25 | Discharge Instructions ---
Discharge Instructions Date of Service Sep 29, 2017. Admission Reason for Admission: Right Hip Degenerative Joint Disease Discharge Discharge Diagnosis / Problem: Right Hip Replacement Discharge Goals Goal(s): Decrease discomfort, Improve function, Increase independence, Improve disease control, Therapeutic intervention Activity Recommendations Activity Limitations: per Instructions/Follow-up section (Total Hip Precautions ) Weightbearing Status: Right weightbearing . Instructions / Follow-Up Instructions / Follow-Up ACTIVITY RECOMMENDATIONS: Physical Therapy: * Aggressive physical therapy is not usually needed. You will learn to take care of yourself safely and walk. * Follow the "Hip Precautions Instructions." * In some cases, the clinical social work therapist at the hospital will arrange to have a therapist come to your house for the first couple of weeks to help you learn these skills. * You need to practice on your own or with the help of a family member as needed. * When you learn these skills, most of the therapy can be done on your own. Home Exercise: * You were shown a series of exercises in the hospital. Do these exercises three to four times each day including the exercises you were shown in physical therapy. Walking: * Get up and walk several times each day. For the first four weeks, try not to stand or walk for more than one hour at a time. If you do stand or walk for more than one hour, you will not hurt anything, but your leg will likely swell. * As you feel comfortable, you may change from the walker or crutches to a cane and then to independent walking. MEDICATIONS: New Medicine: * You will likely be taking one or more of these medicines: 1. Tramadol - Take, as directed, when you need it, every four to six hours to control your pain. 2. Iron Sulfate - Take two times each day for the month after surgery to help you replace the blood lost during surgery. 3. Aspirin - Thins your blood to lessen the chance of forming a blood clot. * The most common side effects of pain medicine and iron are nausea and constipation. If nausea or constipation is too much of a problem or if you have any questions about your new medicines or doses, call [facility] at [phone]. We will try to help you manage these issues. VERY IMPORTANT TO READ AND REVIEW" Pain: * The immediate post-operative period after hip replacement surgery is often quite painful. * You are given a prescription for pain medicine. You should take it, as directed, when you need it, especially before physical therapy and before going to bed. Pain that interferes with sleep is very common and can last several months. * You will likely need pain medicine for the first two to four weeks. It will not stop all of the pain. The pain will lessen and as you feel better, you may change to milder pain medicine such as Tylenol. * The most common side effects of pain medicine are nausea and constipation, so don't take more than you need. SPECIAL CARE INSTRUCTIONS: TEDs/Elastic Stockings: * The white elastic stockings help limit swelling and prevent blood clots from forming in your legs. The more you wear them, the more they work. * Wear them for six weeks. Prevention of Infection: * Take antibiotics one hour before any dental cleaning, dental work, urological procedure, gastrointestinal procedure or any invasive surgery in order to prevent your new joint from getting infected. * You may get the antibiotics from the doctor performing the procedure or you may call our office at before and we will call in a prescription to the pharmacy of your choice. Things to Watch For: * Drainage from the incision site that occurs more than one week after your surgery. * Severely increased leg pain or swelling. * Increased redness at the incision site. * Fever above 102 degrees Fahrenheit. * Unusual chest pain or shortness of breath. * Unusual pain or burning with urination. Call [facility] at with any of the above problems or if you have any questions about your medicines or recovery. FOLLOW UP VISIT: Make an appointment to see your doctor for approximately two weeks after surgery for a progress check and staple removal by calling the office at . Current Hospital Diet Patient's current hospital diet: Regular Diet Discharge Diet Recommended Diet: Regular Diet Procedures Procedures Performed: Right Total Hip Arthroplasty Uncemented Pending Studies Studies pending at discharge: no Medical Emergencies . Who to Call and When: Medical Emergencies: If at any time you feel your situation is an emergency, please call [phone] immediately. . Non-Emergent Contact Non-Emergency issues call your: Surgeon . "Provider Documentation" section prepared by Hemant Noble. .
[2017-09-29] MEDS: PRAVASTATIN SOD 10 MG TAB PO SCH (20:42)
[2017-09-29] MEDS: CHOLECALCIFEROL 1000 INTER.UNIT TAB PO SCH (20:42)
[2017-09-29] MEDS: SENNA 8.6 MG TAB PO SCH (20:42)
[2017-09-30] MEDS: ACETAMINOPHEN 500 MG TAB PO SCH (05:46)
[2017-09-30] MEDS: TRAMADOL HCL 50 MG TAB PO PRN (05:46)
[2017-09-30] MEDS: LEVOTHYROXINE 100 MCG TAB PO SCH (05:46)
[2017-09-30] MEDS: KETOROLAC TROMETHAMINE 30 MG/ML VIAL IV. SCH (05:48)
[2017-09-30 06:10] VITALS: BP 120/75; PULSE 90; TEMP 36.8; O2SAT 97
[2017-09-30] MEDS: LOSARTAN POTASSIUM 25 MG TAB PO SCH (07:35)
[2017-09-30] MEDS: MULTIVITAMIN TAB PO SCH (07:36)
[2017-09-30] MEDS: FERROUS GLUCONATE 324 MG TAB PO SCH (07:36)
[2017-09-30] MEDS: PANTOprazole SOD 40 MG TAB PO SCH (07:36)
[2017-09-30] MEDS: ASPIRIN 81 MG ECTAB PO SCH (07:37)
[2017-09-30] MEDS: DOCUSATE SODIUM 100 MG CAP PO SCH (07:38)
[2017-09-30] MEDS: CHECK SCOPOLAMINE PATCH PLACEMENT SCH (07:39)
--- NOTE | 2017-09-30 08:14 | PROGRESS NOTE ---
DATE: 09/30/2017 SUBJECTIVE: A 62-year-old white female postop day 2 from a right hip replacement. She is doing pretty well. A little bit more pain this morning but did well with some tramadol. No chest pain, no shortness of breath. Not feeling dizzy or lightheaded. OBJECTIVE: VITAL SIGNS: Temperature 36.8. Stable. GENERAL: Examination shows a pleasant middle-aged female. She is sitting on her bedside chair eating breakfast. Looks pretty comfortable. EXTREMITIES: Examination of the right hip reveals the dressing to be clean, dry, and intact. Hip is located. She is neurologically intact. ASSESSMENT: A 62-year-old female postop day 2 from right total hip replacement, doing pretty well. Pain has been reasonably well controlled. Hip is located. She is neurologically intact. PLAN: 1. DVT prophylaxis including thigh-high TEDs, SCDs, and aspirin twice a day. 2. PT/OT. Weightbear as tolerated. Right total knee protocol. 3. Pain control, doing pretty well with current pain regimen. Does not do well with narcotics, will try and stick to tramadol and Tylenol. 4. Disposition: Plan to discharge to home with some home health later today.
[2017-09-30 08:59] VITALS: BP 120/75; PULSE 90; TEMP 36.8; O2SAT 97
--- NOTE | 2017-10-03 14:57 | DISCHARGE SUMMARY ---
ADMITTING PHYSICIAN AND SURGEON: Dr. Noble. ADMITTING DIAGNOSIS: Right hip degenerative joint disease. SURGERY PERFORMED: Right total hip arthroplasty. SECONDARY DIAGNOSES: Hypertension, elevated cholesterol, hypothyroidism, low back pain, sciatica, arthritis. CONSULTS: None obtained. HISTORY AND PHYSICAL EXAMINATION: Well documented in patient's chart. HOSPITAL COURSE: The patient was admitted on 09/28/2017 and underwent total hip arthroplasty. She tolerated the procedure well. There were no complications. She was transferred to the PACU postoperatively and later to the orthopedic floor for further care. She was given Ancef for antibiotic prophylaxis, [place] stockings, SCDs and aspirin for DVT prophylaxis. Hemoglobin, hematocrit and vital signs were monitored during hospital stay and remained stable. She developed some postoperative anemia, did not require any blood transfusions. She did receive an iron supplement. There were no complications during hospital stay. By postoperative day 2, she was tolerating a regular diet, pain was controlled with oral pain medicine. She was participating in physical therapy. On postop day 2, she was discharged home, set up with home health services. She was given printed discharge instructions including new prescriptions for extra strength Tylenol, aspirin, iron supplement, Zofran and tramadol. Continue her home medications with the exception of her home dose of aspirin which was changed. Continue physical therapy, weightbearing as tolerated, [place] stockings, total hip precautions. Follow up in 10-12 days or sooner if any problems or concerns.
== END 2017-09-30 10:15 | disposition home health service (06) | DRG 470 ==
LOC: C.ACU 04:56 → C.3E 06:30 → ENRESERV 09:06
PROVIDERS: ADMIT Orthopaedic Surgery Sports Medicine; ATTEND Orthopaedic Surgery Sports Medicine
PROC: 0SR904A Replacement of Right Hip Joint with Ceramic on Polyethylene Synthetic Substitute, Uncemented, Open Approach (ICD-10-PCS; principal; 2017-09-28 07:00)
DX: M16.11 Unilateral primary osteoarthritis, right hip (principal); M21.70 Unequal limb length (acquired), unspecified site; D64.9 Anemia, unspecified; M17.11 Unilateral primary osteoarthritis, right knee; I10 Essential (primary) hypertension; E03.9 Hypothyroidism, unspecified; E78.00 Pure hypercholesterolemia, unspecified; Z79.899 Other long term (current) drug therapy; Z79.82 Long term (current) use of aspirin; Z79.1 Long term (current) use of non-steroidal anti-inflammatories (NSAID); Z96.652 Presence of left artificial knee joint